=== PATIENT | male | born 1930 | race Caucasian/White ===

== ENCOUNTER 2017-12-04 02:48 | Inpatient (IN) | payer MEDICARE ==
[2017-12-04] VITALS (10 sets, daily range): BP systolic 146–182; BP diastolic 67–92; PULSE 62–85; RESP 15–24; TEMP 98.2–99.5; O2SAT 93–98
[2017-12-04] MEDS ORDERED: LACTULOSE SYRUP 20 GM/30 ML CUP PO PRN (05:00)
[2017-12-04] MEDS ORDERED: ONDANSETRON HCL 4 MG/2 ML VIAL IV PUSH PRN (05:00)
[2017-12-04] MEDS ORDERED: CHLORHEXIDINE GLUCONATE 2 % 1 PACK (2 CLOTHS) TOP PRN (05:00)
[2017-12-04] MEDS: SODIUM CHLOR 0.9% 1000 ML INJ 1,000 ML IV SCH ×2 (05:00→16:55)
[2017-12-04] MEDS ORDERED: SODIUM CHLORIDE 0.9% FLUSH 10 ML FLUSH IV FLUSH PRN (05:00)
[2017-12-04] MEDS ORDERED: BISACODYL 10 MG SUPP RECTAL PRN (05:00)
[2017-12-04] MEDS ORDERED: NURSING INFORMATION XX SCH (05:00)
[2017-12-04] MEDS ORDERED: niCARdipine INJ 25 MG in SODIUM CHLOR 0.9% 250 ML INJ 240 ML IV PRN (05:00)
[2017-12-04] MEDS ORDERED: MAGNESIUM HYDROXIDE SUSP 30 ML CUP PO PRN (05:00)
[2017-12-04] MEDS ORDERED: RESP: ALBUTEROL 2.5 MG/3 ML NEB (PRN) INH (05:00)
[2017-12-04] MEDS ORDERED: SENNOSIDES 8.6 MG TAB PO PRN (05:00)
[2017-12-04] MEDS: LABETALOL HCL 100 MG/20 ML VIAL IV PUSH PRN (05:18)
[2017-12-04] MEDS ORDERED: COMB0.2S EACH EYE (05:53)
[2017-12-04] MEDS ORDERED: FINA5TAB2 (05:54)
[2017-12-04] MEDS ORDERED: CHOL10008 (06:02)
[2017-12-04] MEDS ORDERED: ATOR10TA15 PO (06:02)
[2017-12-04] MEDS ORDERED: METO-489 PO (06:02)
[2017-12-04] MEDS ORDERED: AMLO5 PO (06:02)
[2017-12-04] MEDS ORDERED: TAMS5CAP PO (06:02)
[2017-12-04] MEDS ORDERED: CELE10TA PO (06:02)
[2017-12-04] MEDS ORDERED: NYST10007 TOPICAL (06:02)
[2017-12-04] MEDS ORDERED: LISI40TA PO (06:02)
[2017-12-04] MEDS: ACETAMINOPHEN 325 MG TAB PO PRN ×2 (08:06→18:13)
--- NOTE | 2017-12-04 08:46 | HHI.HP ---
[facility] Service Critical Care Medicine Primary Care Physician Unknown Admission Diagnosis Diagnosis: Chief Complaint: Fall, subdural hemorrhage Travel History International Travel<30 Days: No Contact w/Intl Traveler <30 Da: No Traveled to Known Affected Are: No History of Present Illness 87-year-old male who presented to [facility] on 12/03 with a history of fall 1930 minutes prior to presentation which happened when he was going to lay in his bed when he missed and fell down hitting his head. Patient reportedly on Eliquis. He underwent a head CT at [facility] which revealed left hyperdense subdural hematoma measuring 1 cm in maximal thickness with no mass-effect contiguous left frontal convexity subdural hematoma containing hyperdense hemorrhage maximal thickness 0.8 cm. 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 Patient did sustain a scalp laceration which was sutured at [facility] prior to transferring to [place]. Patient was accepted for transfer to [facility] by Dr. Roche for neurosurgery evaluation. I evaluated the patient this morning following arrival to [facility]. Patient is awake and alert and gives me details of his history. Denies any headache, visual disturbance, dizziness, nausea or vomiting. He does have minimal weakness on the left side which is from his previous stroke. Review of Systems ROS per HPI Past Family Social History Allergies: Coded Allergies: No Known Allergies (Unverified , 12/04/17) Past Medical History CVA/TIA/stroke, glaucoma, hyperlipidemia, hypertension, osteoporosis Past Surgical History Cholecystectomy, EGD Reported Medications Combigan eyedrops, Tylenol as needed, Proscar 5 mg p.o. daily, Ocuvite soft gel 1 cap p.o. twice daily, Lipitor 10 mg p.o. nightly, vitamin D3 1000 units p.o. daily, Celexa 10 mg daily, metoprolol succinate 100 mg p.o. nightly Family History Noncontributory at this time. Social History Occasional alcohol intake. No history of drug abuse. Physical Exam Vital Signs Vital Signs Date Time Temp Pulse Resp B/P (MAP) Pulse Ox O2 Delivery O2 Flow Rate FiO2 12/04/17 06:00 83 12/04/17 04:20 98.3 85 15 182/92 (122) 96 Physical Exam HEENT/Neuro: No pallor or icterus, tongue moist, YADIRA, Awake alert oriented 3 , minimal weakness left upper and lower extremity which is not new, moving all 4 extremities Neck: No JVD Chest/pulmonary: CTA bilaterally Cardiovascular: S1-S2 regular no gallop or murmur GI/abdomen: Soft, nontender, bowel sounds present Extremities: Warm bilaterally, no edema Laboratory Labs done at [facility] reviewed: White count 12.2, hemoglobin 12.9 hematocrit 39.2 platelets 207. PT 14.1 Omma INR 1.3, PTT 30.5 seconds. Sodium 139, potassium 3.8, chloride 103, bicarb 25, BUN 14, creatinine 0.82, glucose 116, calcium 8.9, total bilirubin 0.4, AST 21, ALT 22, alk phos 102, total protein 7.3, albumin 4.1 Laboratory Tests Test 12/04/17 04:30 Nasal Screen MRSA (PCR) MRSA DETECTED Imaging head CT at [facility] which revealed left hyperdense subdural hematoma measuring 1 cm in maximal thickness with no mass-effect contiguous left frontal convexity subdural hematoma containing hyperdense hemorrhage maximal thickness 0.8 cm. 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 Caprini VTE Risk Assessment Caprini VTE Risk Assessment: Mod/High Risk (score >= 2) VTE Pharm Contraindication: Hemorrhage Caprini Risk Assessment Model Point Value = 1 Point Value = 2 Point Value = 3 Point Value = 5 Age 41-60 Minor surgery BMI > 25 kg/m2 Swollen legs Varicose veins or History of unexplained or recurrent spontaneous Oral contraceptives or hormone replacement Sepsis (< 1 month) Serious lung disease, including pneumonia (< 1 month) Abnormal pulmonary function Acute myocardial infarction Congestive heart failure (< 1 month) History of inflammatory bowel disease Medical patient at bed rest Age 61-74 Arthroscopic surgery Major open surgery (> 45 min) Laparoscopic surgery (> 45 min) Malignancy Confined to bed (> 72 hours) Immobilizing plaster cast Central venous access Age >= 75 History of VTE Family history of VTE Factor V Leiden Prothrombin [id number] Lupus anticoagulant Anticardiolipin antibodies Elevated serum homocysteine Heparin-induced thrombocytopenia Other congenital or acquired thrombophilia Stroke (< 1 month) Elective arthroplasty Hip, pelvis, or leg fracture Acute spinal cord injury (< 1 month) Prophylaxis Regimen Total Risk Factor Score Risk Level Prophylaxis Regimen 0-1 Low Early ambulation 2 Moderate Order ONE of the following: *Sequential Compression Device (SCD) *Heparin 5000 units SQ BID 3-4 Higher Order ONE of the following medications: *Heparin 5000 units SQ TID *Enoxaparin/Lovenox 40 mg SQ daily (WT < 150 kg, CrCl > 30 mL/min) *Enoxaparin/Lovenox 30 mg SQ daily (WT < 150 kg, CrCl > 10-29 mL/min) *Enoxaparin/Lovenox 30 mg SQ BID (WT < 150 kg, CrCl > 30 mL/min) AND/OR *Sequential Compression Device (SCD) 5 or more Highest Order ONE of the following medications: *Heparin 5000 units SQ TID (Preferred with Epidurals) *Enoxaparin/Lovenox 40 mg SQ daily (WT < 150 kg, CrCl > 30 mL/min) *Enoxaparin/Lovenox 30 mg SQ daily (WT < 150 kg, CrCl > 10-29 mL/min) *Enoxaparin/Lovenox 30 mg SQ BID (WT < 150 kg, CrCl > 30 mL/min) AND *Sequential Compression Device (SCD) Assessment and Plan Assessment and Plan 87-year-old male with: Fall status post left subdural hematoma Scalp laceration History of CVA/TIAs Hyperlipidemia Hypertension Osteoporosis Glaucoma Plan: Neuro: Admitted to [facility]. Consult neurosurgery for further evaluation of subdural hematoma. Neuro checks. Repeat head CT to be decided per neurosurgery. Cardiovascular: Hold Eliquis. Continue metoprolol. Will use hydralazine as needed for SBP greater than 160 mmHg. Pulmonary: Supplemental O2 as needed, bronchodilators as needed. Currently protecting airway. If neurologic status worsens may require endotracheal intubation. GI/liver: P.o. diet if okay with neurosurgery. Renal/: IV hydration, follow intake output, monitor and replete electrolytes, follow BUN/creatinine. ID: No indication for antibiotics at this time. Endocrine: Watch for hyperglycemia, SSI for glycemic control if needed. Heme: Hold Eliquis. Follow CBC Prophylaxis: SCDs for DVT prophylaxis. Further recommendations per neurosurgery Jamie Conti MD December 04, 2017 08:46
[2017-12-04] MEDS: SODIUM CHLORIDE 0.9% FLUSH 10 ML FLUSH IV FLUSH SCH ×2 (09:00→21:15)
[2017-12-04] MEDS: FAMOTIDINE 20 MG/2 ML VIAL IV PUSH SCH ×2 (09:00→21:15)
[2017-12-04] MEDS: DOCUSATE SODIUM 50 MG/SENNA 8.6 MG TAB PO SCH ×2 (09:00→21:14)
--- NOTE | 2017-12-04 10:50 | PD.CONS ---
History of Present Illness Service Neurosurgery Consult Requested By [employer] Reporter Reason for Consult Acute subdural hemorrhage Primary Care Physician Unknown Diagnoses: History of Present Illness 87-year-old gentleman who was transferred from [facility] for acute subdural hemorrhage after a fall at home last evening where he slipped and struck his back of his head without loss of consciousness. He relates a mild headache but denies any other particular symptoms. He was transferred to [facility] this morning for further management. CT scan of the head reviewed shows an 8 mm left frontal convexity subdural hemorrhage as well as interhemispheric subdural hemorrhage with generalized atrophy and no midline shift. He is on Eliquis anticoagulation for stroke 2 years ago which his relates was significant and he was comatose on a ventilator for a while and has residual left hemiparesis. Last time he took his Eliquis was last evening. He denies any neck or back pain. He relates a couple weeks ago he had some numbness in his hands which has resolved at this point. Review of Systems Constitutional: DENIES: Diaphoretic episodes, Fatigue, Fever, Weight gain, Weight loss, Chills, Dizziness, Change in appetite, Night Sweats Endocrine: DENIES: Heat/cold intolerance, Polydipsia, Polyuria, Polyphagia Eyes: DENIES: Blurred vision, Diplopia, Eye inflammation, Eye pain, Vision loss , Photosensitivity, Double Vision Ears, nose, mouth, throat: DENIES: Tinnitus, Hearing loss, Vertigo, Nasal discharge, Oral lesions, Throat pain, Hoarseness, Ear Pain, Running Nose, Epistaxis, Sinus Pain, Toothache, Odynophagia Respiratory: DENIES: Apneas, Cough, Snoring, Wheezing, Hemoptysis, Sputum production, Shortness of breath Cardiovascular: DENIES: Chest pain, Palpitations, Syncope, Dyspnea on Exertion , PND, Lower Extremity Edema, Orthopnea, Claudication Gastrointestinal: DENIES: Abdominal pain, Black stools, Bloody stools, Constipation, Diarrhea, Nausea, Vomiting, Difficulty Swallowing, Anorexia Genitourinary: DENIES: Sexual dysfunction, Urinary frequency, Urinary incontinence, Urgency, Hematuria, Dysuria, Nocturia, Penile Discharge, Testicular Pain, Testicular Swelling Musculoskeletal: DENIES: Joint pain, Muscle aches, Stiffness, Joint Swelling, Back pain, Neck pain Integumentary: DENIES: Abnormal pigmentation, Nail changes, Pruritus, Rash Hematologic/lymphatic: COMPLAINS OF: Bruising, DENIES: Lymphadenopathy Immunologic/allergic: DENIES: Eczema, Urticaria Neurologic: COMPLAINS OF: Abnormal gait, Headache, Localized weakness, DENIES: Paresthesias, Seizures, Speech Problems, Tremor, Poor Balance Psychiatric: DENIES: Anxiety, Confusion, Mood changes, Depression, Hallucinations, Agitation, Suicidal Ideation, Homicidal Ideation, Delusions Except as stated in HPI: all other systems reviewed are Neg Past Family Social History Allergies: Coded Allergies: No Known Allergies (Unverified , 12/04/17) Past Medical History Stroke with residual left hemiparesis 2 years ago, glaucoma, hyperlipidemia, hypertension, osteoporosis Past Surgical History Cholecystectomy, EGD Reported Medications Atorvastatin (Atorvastatin Calcium) 10 Mg Tab 10 Mg PO HS Nystop Topical (Nystatin Topical) 100,000 Unit/Gm Powd 1 Applic TOPICAL Q12HR Lisinopril 40 Mg Tab 40 Mg PO DAILY Flomax (Tamsulosin HCl) 0.4 Mg Cap 0.4 Mg PO HS Norvasc (Amlodipine Besylate) 5 Mg Tab 5 Mg PO DAILY Metoprolol Succinate/HCTZ 100-12.5 ER 100 Mg-12.5 Mg Tab 1 Tab PO DAILY Celexa (Citalopram Hydrobromide) 10 Mg Tab 10 Mg PO DAILY Vitamin D3 (Cholecalciferol) 1,000 Unit Cap 1,000 Units DAILY Finasteride 5 Mg Tab 5 Mg DAILY Do not crush. Combigan Opth Drops (Brimonidine-Timolol Opth Drops) 0.2-0.5% Soln 1 Drop EACH EYE Q12HR Active Ordered Medications Current Medications Medications (Trade) Dose Ordered Sig/Sher Route PRN Reason Start Time Stop Time Status Last Admin Dose Admin Labetalol HCl (Trandate Inj) 10 mg Q4H PRN IV PUSH SBP >160 12/04/17 05:00 12/04/17 05:18 Hydralazine HCl (Apresoline Inj) 10 mg Q4H PRN IV PUSH SBP >160 12/04/17 05:00 Sodium Chloride 1,000 ml @ 84 mls/hr [id number] IV 12/04/17 05:00 12/04/17 05:00 Sodium Chloride (NS Flush) 2 ml UNSCH PRN IV FLUSH FLUSH AFTER USING IV ACCESS 12/04/17 05:00 Sodium Chloride (NS Flush) 2 ml BID IV FLUSH 12/04/17 09:00 12/04/17 09:00 Acetaminophen (Tylenol) 650 mg Q6H PRN PO PAIN 1-3 OR TEMP >100.4 12/04/17 05:00 12/04/17 08:06 Famotidine (Pepcid Inj) 20 mg Q12HR IV PUSH 12/04/17 09:00 Ondansetron HCl (Zofran Inj) 4 mg Q6H PRN IV PUSH NAUSEA OR VOMITING 12/04/17 05:00 Albuterol Sulfate (Albuterol Neb) 2.5 mg Q2HR NEB PRN INH SOB/WHEEZING 12/04/17 05:00 Miscellaneous Information ([facility] Nursing Information) 1 [id number] XX 12/04/17 05:00 12/04/17 05:00 Chlorhexidine Gluconate (Chlorhexidine 2% Cloth) 3 pack Taper DAILY@04 TOP 12/05/17 04:00 12/01/18 03:59 Chlorhexidine Gluconate (Chlorhexidine 2% Cloth) 3 pack UNSCH PRN TOP HYGIENIC CARE 12/04/17 05:00 Senna/Docusate Sodium (Yanet-Colace) 1 tab BID PO 12/04/17 09:00 Magnesium Hydroxide (Milk Of Magnesia Liq) 30 ml Q12H PRN PO Mild constipation 12/04/17 05:00 Sennosides (Senokot) 17.2 mg Q12H PRN PO Moderate constipation 12/04/17 05:00 Bisacodyl (Dulcolax Supp) 10 mg DAILY PRN RECTAL SEVERE CONSITIPATION 12/04/17 05:00 Lactulose (Lactulose Liq) 30 ml DAILY PRN PO SEVERE CONSITIPATION 12/04/17 05:00 Nicardipine HCl 25 mg/Sodium Chloride 250 ml @ 50 mls/hr TITRATE PRN IV Blood Pressure Management 12/04/17 05:15 Influenza Virus Vaccine (Flu (Quadrivalent) Vaccine Inj) 0.5 ml ONCE ONCE IM 12/05/17 09:00 12/05/17 09:01 Family History Unremarkable Social History He is and and daughter are here with him. Denies alcohol use and is a former smoker Physical Exam Vital Signs Vital Signs Date Time Temp Pulse Resp B/P (MAP) Pulse Ox O2 Delivery O2 Flow Rate FiO2 12/04/17 10:00 66 12/04/17 08:00 72 12/04/17 08:00 98.8 72 24 171/77 (108) 98 12/04/17 08:00 72 12/04/17 07:00 Room Air 98 12/04/17 06:00 83 12/04/17 04:20 98.3 85 15 182/92 (122) 96 Physical Exam GENERAL: This is a well-nourished, well-developed patient, in no apparent distress. SKIN: No rashes, ecchymoses or lesions. Cool and dry. HEAD: Occipital scalp laceration which has been stapled. EYES: Pupils equal round and reactive. Extraocular motions intact. No scleral icterus. No injection or drainage. ENT: Nose without bleeding, purulent drainage or septal hematoma. Throat without erythema, tonsillar hypertrophy or exudate. Uvula midline. Airway patent. NECK: Trachea midline. No JVD or lymphadenopathy. Supple, nontender, no meningeal signs. CARDIOVASCULAR: Regular rate and rhythm without murmurs, gallops, or rubs. RESPIRATORY: Clear to auscultation. Breath sounds equal bilaterally. No wheezes , rales, or rhonchi. GASTROINTESTINAL: Abdomen soft, non-tender, nondistended. No hepato-splenomegaly , or palpable masses. No guarding. MUSCULOSKELETAL: Extremities without clubbing, cyanosis, or edema. No joint tenderness, effusion, or edema noted. No calf tenderness. Negative Homans sign bilaterally. NEUROLOGICAL: Awake and alert. Cranial nerves II through XII intact. Normal speech. His left hemiparesis 4-/5 with positive Babinski on the left side. Appreciates light touch sensation bilaterally. Laboratory Labs done at [facility] reviewed: White count 12.2, hemoglobin 12.9 hematocrit 39.2 platelets 207. PT 14.1 Omma INR 1.3, PTT 30.5 seconds. Sodium 139, potassium 3.8, chloride 103, bicarb 25, BUN 14, creatinine 0.82, glucose 116, calcium 8.9, total bilirubin 0.4, AST 21, ALT 22, alk phos 102, total protein 7.3, albumin 4.1 Laboratory Tests Test 12/04/17 04:30 Nasal Screen MRSA (PCR) MRSA DETECTED Assessment and Plan Assessment and Plan 87-year-old gentleman with a moderate left frontal convexity and interhemispheric subdural hemorrhage with generalized atrophy after a fall. He is on chronic Eliquis therapy for previous history of stroke 2 years ago and residual left hemiparesis. Recommend close observation the surgical intensive care unit. Keep head of bed elevated 30. Mechanical DVT prophylaxis and gastrointestinal stress ulcer prophylaxis. Follow-up CT scan of the head tomorrow morning to rule out any progression of subdural hemorrhage. Unfortunately given the Eliquis therapy he would not be a candidate for any surgical intervention in the next 48-72 hours until this clears out of his system should this subdural hemorrhage enlarge or his condition deteriorate. He will need rehabilitation. Discussed and updated family at the bedside. Discussed with bleach maker Dr. Conti. Babatunde Mcintyre MD December 04, 2017 10:50
[2017-12-04] MEDS: levETIRAcetam 500 MG TAB PO SCH ×2 (12:00→21:14)
--- NOTE | 2017-12-04 13:59 | EKG ---
Date Performed: 12/04/2017 Time Performed: 05:34:50 PTAGE: 87 years EKG: Sinus rhythm with borderline 1st degree A-V block Left axis deviation Low QRS voltages in precordial leads Border line ECG NO PREVIOUS TRACING Voltage criteria for left ventricular hypertrophy in aVL. DOCTOR: Faisal Tovar Interpretating Date/Time 12/04/2017 13:58:02
[2017-12-04] MEDS ORDERED: NON-FORMULARY DRUG (Brimonidine-Timolol Opth Drops (Combigan Opth Drops) 1 DROP) EACH EYE SCH (21:00)
[2017-12-04] MEDS: BRIMONIDINE TARTRATE 0.2% OPHT SOLN 5 ML BTL EACH EYE SCH (21:00)
[2017-12-04] MEDS: TIMOLOL MALEATE 0.5% OPHT SOLN 5 ML BTL EACH EYE SCH (21:00)
[2017-12-04] MEDS: NYSTATIN 100,000 U/GM PWD 15 GM BTL TOPICAL SCH (21:00)
[2017-12-04] MEDS: TAMSULOSIN HCL 0.4 MG CAP PO SCH (21:14)
[2017-12-04] MEDS: ATORVASTATIN 10 MG TAB PO SCH (21:14)
[2017-12-05] VITALS (13 sets, daily range): BP systolic 114–175; BP diastolic 55–74; PULSE 70–84; RESP 19–21; TEMP 99–102; O2SAT 90–97
[2017-12-05] MEDS: CHLORHEXIDINE GLUCONATE 2 % 1 PACK (2 CLOTHS) TOP SCH (04:00)
[2017-12-05] MEDS: SODIUM CHLOR 0.9% 1000 ML INJ 1,000 ML IV SCH ×2 (05:19→16:45)
[2017-12-05 06:08] LABS: AUTOMATED NEUTROPHIL # 5.5 TH/MM3 (1.8-7.7); BASOPHIL % 0.3 % (0.0-2.0); EOSINOPHIL # 0.4 TH/MM3 (0-0.4); EOSINOPHIL % 5.3 % (0.0-4.0); HEMOGLOBIN 10.8 GM/DL (13.0-17.0); LYMPH % 19.4 % (9.0-44.0); LYMPHOCYTE # 1.5 TH/MM3 (1.0-4.8); MEAN CELL VOLUME 93.2 FL (80.0-100.0); MEAN CORPUSCULAR HEMOGLOBIN 32.5 PG (27.0-34.0); MEAN CORPUSCULAR HGB CONC 34.9 % (32.0-36.0); MEAN PLATELET VOLUME 7.5 FL (7.0-11.0); MONO % 4.5 % (0.0-8.0); MONOCYTE # 0.3 TH/MM3 (0-0.9); NEUT % 70.5 % (16.0-70.0); PLATELET COUNT 178 TH/MM3 (150-450); RED BLOOD COUNT 3.33 MIL/MM3 (4.50-5.90); RED CELL DISTRIBUTION WIDTH 13.9 % (11.6-17.2); WHITE BLOOD COUNT 7.8 TH/MM3 (4.0-11.0)
[2017-12-05] MEDS: LABETALOL HCL 100 MG/20 ML VIAL IV PUSH PRN ×2 (06:20→09:53)
[2017-12-05 06:30] LABS: BICARBONATE 24.5 MEQ/L (21.0-32.0); CALCIUM 7.9 MG/DL (8.5-10.1); CREATININE 0.99 MG/DL (0.60-1.30)
[2017-12-05] MEDS: hydrALAZINE HCL 20 MG/ML VIAL IV PUSH PRN (06:36)
[2017-12-05] MEDS: TIMOLOL MALEATE 0.5% OPHT SOLN 5 ML BTL EACH EYE SCH ×2 (09:00→20:36)
[2017-12-05] MEDS: SODIUM CHLORIDE 0.9% FLUSH 10 ML FLUSH IV FLUSH SCH ×2 (09:00→20:36)
[2017-12-05] MEDS: BRIMONIDINE TARTRATE 0.2% OPHT SOLN 5 ML BTL EACH EYE SCH ×2 (09:00→20:36)
[2017-12-05] MEDS ORDERED: INFLUENZA VIRUS VACCINE (QUADRIVALENT) 0.5 ML SYR IM ONE (09:00)
[2017-12-05] MEDS: NYSTATIN 100,000 U/GM PWD 15 GM BTL TOPICAL SCH ×2 (09:00→20:35)
[2017-12-05] MEDS: FINASTERIDE 5 MG TAB PO SCH (09:16)
[2017-12-05] MEDS: CHOLECALCIFEROL (VIT D3) 1000 UNIT TAB PO SCH (09:16)
[2017-12-05] MEDS: METOPROLOL SUCCINATE 50 MG EXTENDED RELEASE TAB PO SCH (09:16)
[2017-12-05] MEDS: amLODIPine BESYLATE 5 MG TAB PO SCH (09:16)
[2017-12-05] MEDS: LISINOPRIL 20 MG TAB PO SCH (09:16)
[2017-12-05] MEDS: DOCUSATE SODIUM 50 MG/SENNA 8.6 MG TAB PO SCH ×3 (09:16→21:00)
[2017-12-05] MEDS: levETIRAcetam 500 MG TAB PO SCH ×3 (09:16→21:00)
[2017-12-05] MEDS: CITALOPRAM HYDROBROMIDE 20 MG TAB PO SCH (09:16)
[2017-12-05] MEDS: HYDROCHLOROTHIAZIDE 12.5 MG CAP PO SCH (09:16)
[2017-12-05] MEDS: FAMOTIDINE 20 MG/2 ML VIAL IV PUSH SCH ×2 (09:17→20:36)
--- NOTE | 2017-12-05 09:51 | RADRPT ---
EXAM DATE/TIME: 12/05/2017 09:35 [place] COMPARISON: No previous studies available for comparison. INDICATIONS : Fall, Subdural hematoma RADIATION DOSE: 56.35 CTDIvol (mGy) MEDICAL HISTORY : Cardiovascular disease. SURGICAL HISTORY : None. ENCOUNTER: Initial ACUITY: 1 day PAIN SCALE: 0/10 LOCATION: cranial TECHNIQUE: Multiple contiguous axial images were obtained of the head. Using automated exposure control and adj ustment of the mA and/or kV according to patient size, radiation dose was kept as low as reasonably a chievable to obtain optimal diagnostic quality images. DICOM format image data is available electro nically for review and comparison. FINDINGS: There is parafalcine and left frontal subdural hematoma with maximum thickness of just over a centime ter. No significant brain shift aerated minimal blood layering along the left leaf of the tentorium. Patchy moderate diminished attenuation deep white matter structures which appears chronic. No evidenc e of intraventricular hemorrhage or significant parenchymal hematoma during there is no evidence of i ntracranial mass. Nothing to suggest acute infarction. There is mild occasional mucosal sinus disease. No evidence of skull fracture. CONCLUSION: Parafalcine and left frontal subdural hematoma. Angelo Dailey MD on December 05, 2017 at 9:46 Board Certified Radiologist. This report was verified electronically.
[2017-12-05] MEDS: niCARdipine 25 MG/NS 250 ML Vial2Bag or IV room IV PRN ×6 (10:07→20:35)
--- NOTE | 2017-12-05 10:20 | HHI.NSPN ---
(Swapnil Ivy) History Chief Complaint: SDH (Swapnil Ivy) Interval History 87-year-old gentleman who was transferred from [facility] for acute subdural hemorrhage after a fall at home last evening where he slipped and struck his back of his head without loss of consciousness. He relates a mild headache but denies any other particular symptoms. He was transferred to [facility] this morning for further management. CT scan of the head reviewed shows an 8 mm left frontal convexity subdural hemorrhage as well as interhemispheric subdural hemorrhage with generalized atrophy and no midline shift. He is on Eliquis anticoagulation for stroke 2 years ago which his relates was significant and he was comatose on a ventilator for a while and has residual left hemiparesis. Last time he took his Eliquis was last evening. He denies any neck or back pain. He relates a couple weeks ago he had some numbness in his hands which has resolved at this point. 12/05/17: Pt awake and alert. Complains of headache all over but not severe. He has a history of left hemiparesis from previous stroke. No n/v. No chest pain or sob. (Swapnil Ivy) Review of Systems General: Negative for: fever, chills, insomnia Respiratory: Negative for: shortness of breath, cough, sputum Cardiovascular: Negative for: chest pain Gastrointestinal: Negative for: nausea, vomitting, diarrhea, constipation ( Swapnil Ivy) Exam Results Vital Signs Date Time Temp Pulse Resp B/P (MAP) Pulse Ox O2 Delivery O2 Flow Rate FiO2 12/05/17 10:07 71 181/79 12/05/17 08:00 99.9 21 97 12/05/17 07:00 Room Air 99 Intake and Output 12/05/17 12/05/17 12/06/17 08:00 16:00 00:00 Intake Total 1120 ml Output Total 450 ml Balance 670 ml (Swapnil Ivy) Physical Examination General: Pt awake and alert. Resting in bed in ICU. Eyes: Pupils equal. Sclera anicteric. Resp: CTA bilaterally. Heart: NSR no murmurs Abd: Soft positive bs Skin: No cyanosis or erythema. Muscle: Left hemiparesis from his previous stroke. Moves right side well. Neuro: Pt awake and alert. Pupils equal. Speech clear and appropriate. Follows commands well. (Swapnil Ivy) Lab, Micro, Other Results Last Impressions Head CT 12/05/17 0800 Signed Impressions: Service Date/Time: Tuesday, December 05, 2017 09:35 - CONCLUSION: Parafalcine and left frontal subdural hematoma. Angelo Dailey MD Laboratory Tests Test 12/05/17 05:31 White Blood Count 7.8 TH/MM3 Red Blood Count 3.33 MIL/MM3 Hemoglobin 10.8 GM/DL Hematocrit 31.0 % Mean Corpuscular Volume 93.2 FL Mean Corpuscular Hemoglobin 32.5 PG Mean Corpuscular Hemoglobin Concent 34.9 % Red Cell Distribution Width 13.9 % Platelet Count 178 TH/MM3 Mean Platelet Volume 7.5 FL Neutrophils (%) (Auto) 70.5 % Lymphocytes (%) (Auto) 19.4 % Monocytes (%) (Auto) 4.5 % Eosinophils (%) (Auto) 5.3 % Basophils (%) (Auto) 0.3 % Neutrophils # (Auto) 5.5 TH/MM3 Lymphocytes # (Auto) 1.5 TH/MM3 Monocytes # (Auto) 0.3 TH/MM3 Eosinophils # (Auto) 0.4 TH/MM3 Basophils # (Auto) 0.0 TH/MM3 CBC Comment DIFF FINAL Differential Comment Blood Urea Nitrogen 11 MG/DL Creatinine 0.99 MG/DL Random Glucose 95 MG/DL Calcium Level 7.9 MG/DL Sodium Level 142 MEQ/L Potassium Level 3.6 MEQ/L Chloride Level 109 MEQ/L Carbon Dioxide Level 24.5 MEQ/L Anion Gap 9 MEQ/L Estimat Glomerular Filtration Rate 72 ML/MIN (Swapnil Ivy) Medical Decision Making Impression and Plan A: 87-year-old gentleman with a moderate left frontal convexity and interhemispheric subdural hemorrhage with generalized atrophy after a fall. He is on chronic Eliquis therapy for previous history of stroke 2 years ago and residual left hemiparesis. Pt at high risk for increased hemorrhage and clinical deterioration. Follow up CT head just done will be compared to previous. P: Continue with close neuro checks. Anticoagulation obviously on hold. Continue with DVT prophylaxis Continue with GI prophylaxis. (Swapnil Ivy) Attending Statement The exam, history, and the medical decision-making described in the above note were completed with the assistance of the mid-level provider. I reviewed and agree with the findings presented. I attest that I had a [id number] encounter with the patient on the same day, and personally performed and documented my assessment and findings in the medical record. Follow-up CT scan of the head with slight increase in the left convexity subdural hemorrhage. He was more alert and verbose and interactive this morning and this afternoon was noted to have possible tremors in the right side and subsequently more aphasic and lethargic. He does follow simple commands and will state his name and location. He is on Keppra 500 mg twice daily and will be bolused an additional 1000 mg and also obtain EEG. Possible intubation if his level of alertness and airway protection declines. We will also obtain a follow-up CT scan of the head tomorrow morning to rule out any progression of this is a subdural hemorrhage. Discussed with the and painting instructor Dr. Dunn. (Babatunde Mcintyre MD) Swapnil Ivy December 05, 2017 10:20 Babatunde Mcintyre MD December 05, 2017 16:21
--- NOTE | 2017-12-05 13:01 | HHI.CCPN ---
Subjective Remarks/Hospital Course 87-year-old male who presented to [facility] on 12/03 with a history of fall 1930 minutes prior to presentation which happened when he was going to lay in his bed when he missed and fell down hitting his head. Patient reportedly on Eliquis. He underwent a head CT at [facility] which revealed left hyperdense subdural hematoma measuring 1 cm in maximal thickness with no mass-effect contiguous left frontal convexity subdural hematoma containing hyperdense hemorrhage maximal thickness 0.8 cm. 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 Patient did sustain a scalp laceration which was sutured at [facility] prior to transferring to [place]. Patient was accepted for transfer to [facility] by Dr. Roche for neurosurgery evaluation. I evaluated the patient this morning following arrival to [facility]. Patient is awake and alert and gives me details of his history. Denies any headache, visual disturbance, dizziness, nausea or vomiting. He does have minimal weakness on the left side which is from his previous stroke. 12/05: Patient remains alert and conversant. Speech is clear. All anticoagulation has been stopped. Repeat CAT scan of the head shows some attenuation of the hematoma. No mass-effect. Memory is excellent. Update 1400 hrs: Patient quite lethargic. Responds to loud voice. Probably post- ictal, watch closely. Objective Vital Signs Date Time Temp Pulse Resp B/P (MAP) Pulse Ox O2 Delivery O2 Flow Rate FiO2 12/05/17 12:00 102.0 78 19 143/65 (91) 97 12/05/17 11:53 Nasal Cannula 2.00 12/05/17 07:00 99 Intake and Output 12/05/17 12/05/17 12/06/17 08:00 16:00 00:00 Intake Total 1120 ml Output Total 450 ml Balance 670 ml Result Diagram: 12/05/17 0531 12/05/[address] [facility] which revealed left hyperdense subdural hematoma measuring 1 cm in maximal thickness with no mass-effect contiguous left frontal convexity subdural hematoma containing hyperdense hemorrhage maximal thickness 0.8 cm. 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 Objective Remarks Neuro: Awake alert oriented 3, persistent weakness left upper and lower extremity which is not new, moving all 4 extremities. Speech clear, speaks in full sentences. Neck: Supple, airway widely patent Chest/pulmonary: Clear, no adventitious sounds. Comfortable respiratory pattern. Cardiovascular: S1-S2 regular no gallop or murmur. No JVD. GI/abdomen: Soft, nontender, bowel sounds present. No guarding. Extremities: Warm bilaterally, no edema. Well-perfused. A/P Assessment and Plan 87-year-old male with: Fall status post left subdural hematoma Scalp laceration History of CVA/TIAs Hyperlipidemia Hypertension Osteoporosis Glaucoma Plan: Neuro: Admitted to [facility]. Neuro checks. Repeat head CT without extension of hematoma. Cardiovascular: Hold Eliquis. Continue metoprolol. Will use hydralazine as needed for SBP greater than 160 mmHg. Pulmonary: Supplemental O2 as needed, bronchodilators as needed. Currently protecting airway. GI/liver: P.o. diet. Renal/: IV hydration, follow intake output, monitor and replete electrolytes, follow BUN/creatinine. ID: No indication for antibiotics at this time. Endocrine: Watch for hyperglycemia, SSI for glycemic control if needed. Heme: Hold Eliquis. Follow CBC Prophylaxis: SCDs for DVT prophylaxis. Overall impression: Elderly gentleman sustained closed head injury with traumatic subdural hematoma right side. Patient has been on Eliquis following a severe CVA 2 years ago. He protects his airway well and there has been no neurologic deterioration. Back in [place] he has arrangements made for a woman to visit his house 5 days a week. She assists with his daily activities. We need to discuss his post acute care with case management at [facility] prior to discharge. Lengthy talk with his daughter and Dr. Mcintyre at the bedside. Plans discussed. Daughter has been encouraged to discuss half-way goals with her brother. She is DOROTEO for health. Tony Flood MD December 05, 2017 13:01
[2017-12-05] MEDS ORDERED: levETIRAcetam INJ 100 ML IV ONE (14:00)
[2017-12-05] MEDS: TAMSULOSIN HCL 0.4 MG CAP PO SCH ×2 (20:37→21:00)
[2017-12-05] MEDS: ATORVASTATIN 10 MG TAB PO SCH ×2 (20:37→21:00)
[2017-12-05] MEDS: ACETAMINOPHEN 325 MG TAB PO PRN (20:37)
[2017-12-06] VITALS (10 sets, daily range): BP systolic 126–168; BP diastolic 58–78; PULSE 65–89; RESP 16–22; TEMP 99.4–101.2; O2SAT 95–98
[2017-12-06] MEDS: niCARdipine 25 MG/NS 250 ML Vial2Bag or IV room IV PRN ×4 (03:17→07:55)
[2017-12-06] MEDS: CHLORHEXIDINE GLUCONATE 2 % 1 PACK (2 CLOTHS) TOP SCH (04:00)
[2017-12-06] MEDS: SODIUM CHLOR 0.9% 1000 ML INJ 1,000 ML IV SCH ×2 (04:40→16:35)
[2017-12-06 05:16] LABS: BICARBONATE 25.2 MEQ/L (21.0-32.0); CALCIUM 7.7 MG/DL (8.5-10.1); CREATININE 0.74 MG/DL (0.60-1.30)
--- NOTE | 2017-12-06 05:53 | RADRPT ---
EXAM DATE/TIME: 12/06/2017 05:00 [place] COMPARISON: CT BRAIN W/O CONTRAST, December 05, 2017, 9:35. INDICATIONS : Fall, Subdural hematoma RADIATION DOSE: 39.13 CTDIvol (mGy) ; Patient motion MEDICAL HISTORY : Cardiovascular disease. SURGICAL HISTORY : None. ENCOUNTER: Initial ACUITY: 1 day PAIN SCALE: 5/10 LOCATION: cranial TECHNIQUE: Multiple contiguous axial images were obtained of the head. Using automated exposure control and adj ustment of the mA and/or kV according to patient size, radiation dose was kept as low as reasonably a chievable to obtain optimal diagnostic quality images. DICOM format image data is available electro nically for review and comparison. FINDINGS: CEREBRUM: The parafalcine subdural hematoma which slightly extends along the left side of the tentorium and in the left frontal lobe are unchanged. Small amounts of subarachnoid hemorrhage along the left parietal and left temporal extra-axial regions are also unchanged. There is diffuse atrophy. Number left side lacunar infarcts. POSTERIOR FOSSA: The cerebellum and brainstem are intact. The 4th ventricle is midline. The cerebellopontine angle i s unremarkable. EXTRACRANIAL: The visualized portion of the orbits is intact. SKULL: The calvaria is intact. No evidence of skull fracture. CONCLUSION: Stable prominent parafalcine subdural hematoma extending into both the left frontal lobe and the left side of the tentorium unchanged from the previous study. Small amounts of extra-axial hemorrhage derrek ng the parietal lobe and left temporal lobes are also unchanged. Jensen Gaytan MD on December 06, 2017 at 5:50 Board Certified Radiologist. This report was verified electronically.
--- NOTE | 2017-12-06 07:51 | HHI.PR ---
Subjective Remarks F/U TBI. Consulted by CCM fr med mgt and transfer of care. Patient is lethargic. Answers no to all my questions. He is not following commands. Seen with his daughter who states patient at baseline is awake and ambulatory with minimal left-sided weakness from previous stroke. Discussed with nurse, patient has been off nicardipine Objective Vitals Vital Signs Date Time Temp Pulse Resp B/P (MAP) Pulse Ox O2 Delivery O2 Flow Rate FiO2 12/06/17 06:00 88 12/06/17 04:00 99.8 73 20 129/62 (84) 97 12/06/17 04:00 88 12/06/17 03:17 73 132/60 12/06/17 02:00 89 12/06/17 01:34 96 Nasal Cannula 4.00 12/06/17 00:00 72 12/06/17 00:00 99.8 65 20 126/58 (80) 97 12/05/17 22:00 72 12/05/17 20:35 76 141/62 12/05/17 20:00 76 12/05/17 20:00 99.0 76 21 136/64 (88) 97 12/05/17 19:00 Room Air 98 12/05/17 18:00 78 12/05/17 16:00 78 12/05/17 16:00 99.3 79 19 119/57 (77) 97 12/05/17 16:00 79 12/05/17 15:50 77 113/59 12/05/17 15:50 77 12/05/17 14:00 77 12/05/17 12:00 100.2 78 19 143/65 (91) 97 12/05/17 12:00 78 12/05/17 12:00 78 12/05/17 11:53 95 Nasal Cannula 2.00 12/05/17 10:07 71 181/79 12/05/17 10:00 76 12/05/17 08:00 99.9 77 21 175/74 (107) 97 12/05/17 08:00 77 12/05/17 08:00 77 I/O 12/05/17 12/05/17 12/05/17 12/06/17 12/06/17 12/06/17 07:00 15:00 23:00 07:00 15:00 23:00 Intake Total 1120 ml 1340 ml Output Total 450 ml Balance 670 ml 1340 ml Intake Oral 120 ml 100 ml IV Total 1000 ml 1240 ml Output Urine Total 450 ml # Voids 5 4 # Bowel Movements 0 0 1 Result Diagram: 12/05/17 0531 12/06/17 0359 Imaging Last Impressions Head CT 12/06/17 0800 Signed Impressions: Service Date/Time: Wednesday, December 06, 2017 05:00 - CONCLUSION: Stable prominent parafalcine subdural hematoma extending into both the left frontal lobe and the left side of the tentorium unchanged from the previous study. Small amounts of extra-axial hemorrhage along the parietal lobe and left temporal lobes are also unchanged. Jensen Gaytan MD Objective Remarks Neuro: Lethargic easily arousable not following commands. Neck: Supple, airway widely patent Chest/pulmonary: Clear, equal in expansion Cardiovascular: S1-S2 regular no gallop or murmur. No JVD. GI/abdomen: Soft, nontender, bowel sounds present. No guarding. Extremities: Warm bilaterally, no edema. Well-perfused. Procedures none A/P Problem List: (1) TBI (traumatic brain injury) ICD Code: S06.9X9A - Unspecified intracranial injury with loss of consciousness of unspecified duration, initial encounter Assessment and Plan 87-year-old male with: Fall status post left subdural hematoma Scalp laceration s/p repair History of CVA/TIAs Hyperlipidemia Hypertension Osteoporosis Glaucoma Plan: Neuro: Admitted to [facility]. Neuro checks. Repeat head CT without extension of hematoma. Ct keppra sz precautions, neuro checks. Fall precautions. Neurology recommended MRI of the brain and repeat EEG. Also check for metabolic or infectious causes of encephalopathy. UA has been ordered. Cardiovascular: Hold Eliquis. Continue metoprolol if tolerating p.o. Will use hydralazine as needed for SBP greater than 160 mmHg. Start clonidine patch Pulmonary: Supplemental O2 as needed, bronchodilators as needed. Currently protecting airway. GI/liver: P.o. diet pending swallowing eval. Renal/: IV hydration, follow intake output, monitor and replete electrolytes, follow BUN/creatinine. ID: No indication for antibiotics at this time. Chest x-ray is abnormal if patient develops fever will start empiric treatment for hospital-acquired pneumonia after obtaining appropriate cultures Endocrine: Watch for hyperglycemia, SSI for glycemic control if needed. Heme: Hold Eliquis. Follow CBC FEN. Continue IV hydration pending swallow eval. May need tube feeding however daughter who is the power of sports attorney states patient does not want artificial nutrition Prophylaxis: SCDs for DVT prophylaxis. PT recommends rehab Daughter has been encouraged to discuss longwall foreman goals with her brother. She is POA for health. Discharge Planning Patient to be kept in ICU high likelihood of deterioration of his neurological status Gera Fuchs MD December 06, 2017 07:51
[2017-12-06] MEDS ORDERED: POTASSIUM CHLORIDE 20 MEQ CONTROLLED RELEASE TAB PO ONE (08:00)
--- NOTE | 2017-12-06 08:37 | MG ---
cc: Kisha Barahona MD ELECTROENCEPHALOGRAM NUMBER: [id number]. REFERRING PHYSICIAN: Dr. Mcintyre. CLINICAL HISTORY: In room 1312, awake and restless with photic only. Head is wrapped to secure wires. Constantly moaning during study sitting up. CT shows parafalcine and left frontal subdural hematoma status post fall. MEDICATIONS: Keppra. DESCRIPTION OF RECORD: There is a very disorganized background with a lot of artifact. It is noted that he is awake. There may be some background slowing between theta and delta frequencies seen. Moaning and sitting up in the bed confirms a lot of artifact, but no overt epileptic findings. Photic stimulation, no significant driving response. IMPRESSION: Abnormal electroencephalogram due to moderate slowing likely related to encephalopathic process of various etiologies such as a subdural hematoma and/or medicine effect, but no evidence of epileptiform features in this one recording. Clinical correlation. Kisha Barahona MD DF/DL , 08:27 AM , 08:36 AM
[2017-12-06] MEDS: CHOLECALCIFEROL (VIT D3) 1000 UNIT TAB PO SCH (09:00)
[2017-12-06] MEDS: HYDROCHLOROTHIAZIDE 12.5 MG CAP PO SCH (09:00)
[2017-12-06] MEDS: METOPROLOL SUCCINATE 50 MG EXTENDED RELEASE TAB PO SCH (09:00)
[2017-12-06] MEDS: NYSTATIN 100,000 U/GM PWD 15 GM BTL TOPICAL SCH ×2 (09:00→20:57)
[2017-12-06] MEDS: amLODIPine BESYLATE 5 MG TAB PO SCH (09:00)
[2017-12-06] MEDS: TIMOLOL MALEATE 0.5% OPHT SOLN 5 ML BTL EACH EYE SCH ×2 (09:00→20:55)
[2017-12-06] MEDS: BRIMONIDINE TARTRATE 0.2% OPHT SOLN 5 ML BTL EACH EYE SCH ×2 (09:00→20:54)
[2017-12-06] MEDS: CITALOPRAM HYDROBROMIDE 20 MG TAB PO SCH (09:00)
[2017-12-06] MEDS: DOCUSATE SODIUM 50 MG/SENNA 8.6 MG TAB PO SCH ×2 (09:00→20:57)
[2017-12-06] MEDS: FINASTERIDE 5 MG TAB PO SCH (09:00)
[2017-12-06] MEDS: LISINOPRIL 20 MG TAB PO SCH (09:17)
[2017-12-06] MEDS: levETIRAcetam 500 MG/NS 100 ML IV SCH ×4 (09:22→20:54)
[2017-12-06] MEDS: MUPIROCIN 2% OINT 1 APPLIC/GM SYR EACH NARE SCH ×2 (09:22→20:55)
[2017-12-06] MEDS: FAMOTIDINE 20 MG/2 ML VIAL IV PUSH SCH ×2 (09:22→20:56)
[2017-12-06] MEDS: SODIUM CHLORIDE 0.9% FLUSH 10 ML FLUSH IV FLUSH SCH ×2 (09:23→20:55)
--- NOTE | 2017-12-06 10:13 | HHI.NSPN ---
(Swapnil Ivy) History Chief Complaint: SDH (Swapnil Ivy) Interval History 87-year-old gentleman who was transferred from [facility] for acute subdural hemorrhage after a fall at home last evening where he slipped and struck his back of his head without loss of consciousness. He relates a mild headache but denies any other particular symptoms. He was transferred to [facility] this morning for further management. CT scan of the head reviewed shows an 8 mm left frontal convexity subdural hemorrhage as well as interhemispheric subdural hemorrhage with generalized atrophy and no midline shift. He is on Eliquis anticoagulation for stroke 2 years ago which his relates was significant and he was comatose on a ventilator for a while and has residual left hemiparesis. Last time he took his Eliquis was last evening. He denies any neck or back pain. He relates a couple weeks ago he had some numbness in his hands which has resolved at this point. 12/05/17: Pt awake and alert. Complains of headache all over but not severe. He has a history of left hemiparesis from previous stroke. No n/v. No chest pain or sob. 12/06/17: Pt has eyes open but more lethargic than yesterday morning He has global aphasia. He says yep to everything. He is not following commands. (Swapnil Ivy) System Review Comments Not able to obtain given significant aphasia. (Swapnil Ivy) Exam Results Vital Signs Date Time Temp Pulse Resp B/P (MAP) Pulse Ox O2 Delivery O2 Flow Rate FiO2 12/06/17 08:00 99.4 82 22 133/58 (83) 95 12/06/17 08:00 Nasal Cannula 2.00 12/05/17 19:00 98 (Swapnil Ivy) Physical Examination General: Pt awake but not as alert as yesterday morning. Resting in bed in ICU. Eyes: Pupils equal. Sclera anicteric. Resp: CTA bilaterally. Heart: NSR no murmurs Abd: Soft positive bs Skin: No cyanosis or erythema. Muscle: Left hemiparesis from his previous stroke. Moves right side less than yesterday. He is not following commands for muscle testing but observed spontaneous movement in all 4 extremities. Neuro: Pt awake but not as alert as yesterday morning. Pupils equal 3mm bilaterally. Speech aphasia receptive and expressive. Says yep to everything. Not following commands. (Swapnil Ivy) Lab, Micro, Other Results Last Impressions Head CT 12/06/17 0800 Signed Impressions: Service Date/Time: Wednesday, December 06, 2017 05:00 - CONCLUSION: Stable prominent parafalcine subdural hematoma extending into both the left frontal lobe and the left side of the tentorium unchanged from the previous study. Small amounts of extra-axial hemorrhage along the parietal lobe and left temporal lobes are also unchanged. Jensen Gaytan MD Laboratory Tests Test 12/06/17 03:59 Blood Urea Nitrogen 13 MG/DL Creatinine 0.74 MG/DL Random Glucose 136 MG/DL Calcium Level 7.7 MG/DL Sodium Level 139 MEQ/L Potassium Level 3.3 MEQ/L Chloride Level 104 MEQ/L Carbon Dioxide Level 25.2 MEQ/L Anion Gap 10 MEQ/L Estimat Glomerular Filtration Rate 100 ML/MIN (Swapnil Ivy) Medical Decision Making Impression and Plan A: 87-year-old gentleman with a moderate left frontal convexity and interhemispheric subdural hemorrhage with generalized atrophy after a fall. He is on chronic Eliquis therapy for previous history of stroke 2 years ago and residual left hemiparesis. Pt at high risk for increased hemorrhage and clinical deterioration. Follow up CT head done 12/05 was compared to previous and reveals slight increase in the left convexity subdural hemorrhage. Follow up CT head today is stable. P: Continue with close neuro checks. Anticoagulation obviously on hold. Continue with DVT prophylaxis Continue with GI prophylaxis. (Swapnil Ivy) Attending Statement The exam, history, and the medical decision-making described in the above note were completed with the assistance of the mid-level provider. I reviewed and agree with the findings presented. I attest that I had a [id number] encounter with the patient on the same day, and personally performed and documented my assessment and findings in the medical record. His level of alertness and aphasia fluctuates, earlier was more lethargic and aphasic but now he is more responsive and verbalizing a few words and follows simple commands. No epileptiform activity noted on EEG. Follow-up CT scan of the head is stable compared to yesterday. Continue with close observation, seizure prophylaxis and conservative management. (Babatunde Mcintyre MD) Swapnil Ivy December 06, 2017 10:13 Babatunde Mcintyre MD December 06, 2017 18:28
--- NOTE | 2017-12-06 12:00 | PD.CONS ---
History of Present Illness Service Neurology Consult Requested By Medical Team Reason for Consult seizure, altered mental status Primary Care Physician Unknown History of Present Illness 87 y/o male slipped and fell at home, hit the back of his head and developed a left frontal subdural hematoma. He was admitted and has been followed by neurosurgery. His daughter noted that yesterday he became more lethargic and could not answer questions except for saying yes. she has noticed also that his left arm has become more flexed and he is not using his right arm as much. He has past hx of stroke with left hemiparesis. He lived alone prior to this hospital stay and daughter denies any hx of memory problems. He had a nurse that would come check on him at home. Daughter does not know of any cardiac conditions. He had previously been on Eliquis but is not currently on Eliquis due to the SDH. Was started on Keppra yesterday. Nurse is unsure how many doses he received as it had been PO and he has not been swallowing (Marisa Granados) Review of Systems All other ROS: Unable to obtain (Marisa Granados) Past Family Social History Allergies: Coded Allergies: No Known Allergies (Unverified , 12/04/17) Past Medical History obtained from chart: stroke with left hemiparesis, HTN, hyperlipidemia, glaucoma , osteoporosis Past Surgical History obtained from chart stent placement, EGD, cholecystectomy Active Ordered Medications Current Medications Medications (Trade) Dose Ordered Sig/Sher Route Start Time Stop Time Status Last Admin (Trandate Inj) 10 mg Q4H PRN IV PUSH 12/04/17 05:00 12/05/17 09:53 (Apresoline Inj) 10 mg Q4H PRN IV PUSH 12/04/17 05:00 12/05/17 06:36 Sodium Chloride 1,000 ml @ 84 mls/hr [id number] IV 12/04/17 05:00 12/06/17 04:40 (NS Flush) 2 ml UNSCH PRN IV FLUSH 12/04/17 05:00 (NS Flush) 2 ml BID IV FLUSH 12/04/17 09:00 12/06/17 09:23 (Tylenol) 650 mg Q6H PRN PO 12/04/17 05:00 12/04/17 18:13 (Pepcid Inj) 20 mg Q12HR IV PUSH 12/04/17 09:00 12/06/17 09:22 (Zofran Inj) 4 mg Q6H PRN IV PUSH 12/04/17 05:00 (Albuterol Neb) 2.5 mg Q2HR NEB PRN INH 12/04/17 05:00 ([facility] Information) 1 [id number] XX 12/04/17 05:00 12/04/17 05:00 (Chlorhexidine 2% Cloth) 3 pack Taper DAILY@04 TOP 12/05/17 04:00 12/01/18 03:59 (Chlorhexidine 2% Cloth) 3 pack UNSCH PRN TOP 12/04/17 05:00 (Yanet-Colace) 1 tab BID PO 12/04/17 09:00 12/05/17 09:16 (Milk Of Magnesia Liq) 30 ml Q12H PRN PO 12/04/17 05:00 (Senokot) 17.2 mg Q12H PRN PO 12/04/17 05:00 (Dulcolax Supp) 10 mg DAILY PRN RECTAL 12/04/17 05:00 (Lactulose Liq) 30 ml DAILY PRN PO 12/04/17 05:00 Nicardipine HCl 25 mg/Sodium Chloride 250 ml @ 50 mls/hr TITRATE PRN IV 12/04/17 05:15 12/06/17 07:55 (Norvasc) 5 mg DAILY PO 12/05/17 09:00 12/05/17 09:16 (Lipitor) 10 mg HS PO 12/04/17 21:00 12/04/17 21:14 (Vitamin D3) 1,000 units DAILY PO 12/05/17 09:00 12/05/17 09:16 (CeleXA) 10 mg DAILY PO 12/05/17 09:00 12/05/17 09:16 (Proscar) 5 mg DAILY PO 12/05/17 09:00 12/05/17 09:16 (Mycostatin Powder) 1 applic Q12HR TOPICAL 12/04/17 21:00 12/05/17 20:35 (Flomax) 0.4 mg HS PO 12/04/17 21:00 12/04/17 21:14 (Prinivil) 40 mg DAILY PO 12/05/17 09:00 12/05/17 09:16 (Toprol Xl) 100 mg DAILY PO 12/05/17 09:00 12/05/17 09:16 (Alphagan 0.2% Opth Soln) 1 drop Q12HR EACH EYE 12/04/17 21:00 12/06/17 09:00 (Timoptic 0.5% Opth Soln) 1 drop Q12HR EACH EYE 12/04/17 21:00 12/06/17 09:00 (Microzide) 12.5 mg DAILY PO 12/05/17 09:00 12/05/17 09:16 (Bactroban Nasal 2% Oint) 1 applic BID EACH NARE 12/06/17 09:00 12/13/17 08:59 12/06/17 09:22 Levetriacetam 500 mg/Sodium Chloride 105 ml @ 420 mls/hr Q12HR IV 12/06/17 09:00 12/06/17 09:22 Family History noncontributory Social History no drugs, occasional alcohol, lives alone at home (Marisa Granados) Exam I&O / VS Vital Signs Date Time Temp Pulse Resp B/P (MAP) Pulse Ox O2 Delivery O2 Flow Rate FiO2 12/06/17 08:00 99.4 82 22 133/58 (83) 95 12/06/17 08:00 93 Nasal Cannula 2.00 12/06/17 07:55 87 132/65 12/06/17 06:00 88 12/06/17 04:00 99.8 73 20 129/62 (84) 97 12/06/17 04:00 88 12/06/17 03:17 73 132/60 12/06/17 02:00 89 12/06/17 01:34 96 Nasal Cannula 4.00 12/06/17 00:00 72 12/06/17 00:00 99.8 65 20 126/58 (80) 97 12/05/17 22:00 72 12/05/17 20:35 76 141/62 12/05/17 20:00 76 12/05/17 20:00 99.0 76 21 136/64 (88) 97 12/05/17 19:00 Room Air 98 12/05/17 18:00 78 12/05/17 16:00 78 12/05/17 16:00 99.3 79 19 119/57 (77) 97 12/05/17 16:00 79 12/05/17 15:50 77 113/59 12/05/17 15:50 77 12/05/17 14:00 77 12/05/17 12:00 100.2 78 19 143/65 (91) 97 12/05/17 12:00 78 12/05/17 12:00 78 12/05/17 11:53 95 Nasal Cannula 2.00 Eye: PERRL Exam Comments pt is lethargic but arousable, opens eyes to command but otherwise does not follow commands, answers "yea" to questions, PERRL, spastic left hemiparesis noted in UE, not moving RUE, does not follow commands to move feet, legs, toes, withdraws from stimuli in toes, able to sit upright with help from PT, slouched , no tremor noted, no seizure activity noted, no facial droop, no gaze deviation (Marisa Granados) Review/Management Diagnosis/Plan: (1) Altered mental status ICD Codes: R41.82 - Altered mental status, unspecified Plan: EEG check for sz activity vs encephalopathy MRI brain to rule out stroke at pt off eliquis telemetry (2) CVA (cerebral vascular accident) ICD Codes: I63.9 - Cerebral infarction, unspecified Plan: MRI brain eval for CVA consider MRA brain and CUS if indicated telemetry (3) Aphasia ICD Codes: R47.01 - Aphasia Plan: ? related to sz, stroke, bleed EEG MRI (4) Encephalopathy ICD Codes: G93.40 - Encephalopathy, unspecified Status: Acute Plan: EEG initially showed slowing but no seizure activity repeat EEG today continue IV Keppra check for infectious/metabolic causes (5) TBI (traumatic brain injury) ICD Codes: S06.9X9A - Unspecified intracranial injury with loss of consciousness of unspecified duration, initial encounter Plan: neurosurgery following repeat CT this morning did not show changes (Marisa Granados) Diagnosis/Plan: (1) Encephalopathy ICD Codes: G93.40 - Encephalopathy, unspecified Status: Acute Plan: 2/2 ICH EEG initially showed slowing but no seizure activity repeat EEG today continue IV Keppra check for infectious/metabolic causes check nh3/abg/cxr seen and examined. d/w PA. agree with above (2) TBI (traumatic brain injury) ICD Codes: S06.9X9A - Unspecified intracranial injury with loss of consciousness of unspecified duration, initial encounter Plan: neurosurgery following repeat CT this morning did not show changes (3) Altered mental status ICD Codes: R41.82 - Altered mental status, unspecified Plan: EEG check for sz activity vs encephalopathy MRI brain to rule out stroke at pt off eliquis telemetry (4) Aphasia ICD Codes: R47.01 - Aphasia Plan: ? related to sz, stroke, bleed EEG MRI (5) CVA (cerebral vascular accident) ICD Codes: I63.9 - Cerebral infarction, unspecified Plan: MRI brain eval for CVA consider MRA brain and CUS if indicated telemetry (Sha Jane MD) Marisa Granados December 06, 2017 12:00 Sha Jane MD December 06, 2017 15:07
[2017-12-06] MEDS: ACETAMINOPHEN 325 MG TAB PO PRN (15:00)
--- NOTE | 2017-12-06 15:30 | MG ---
cc: Kisha Barahona MD DATE OF : 1930 AGE: [age] years old. EEG NUMBER: [id number] REQUESTING PHYSICIAN: Swapnil Ivy PA-C ROOM: 1312. NOTE: Asleep with photic stimulation. Lethargic. CT shows parafalcine subdural hematoma stable in both frontal lobes. Repeat study. MEDICATIONS: He is on Keppra. FINDINGS: There is overall background slowing of 5 Hz, symmetrical. At times, there is some delta slowing between delta-theta frequency, tends to fall asleep. EKG is sinus. Photic stimulation was performed at the end of the recording with minimal driving response. No epileptic activity. IMPRESSION: Moderate background slowing consistent with an encephalopathic process. No evidence of any epileptiform features. Clinical correlation. Kisha Barahona MD DF/SB , 02:58 PM , 03:29 PM
--- NOTE | 2017-12-06 16:19 | RADRPT ---
EXAM DATE/TIME: 12/06/2017 15:40 [facility] COMPARISON: No previous studies available for comparison. INDICATIONS : Seizures. SDH. Lethargic. MEDICAL HISTORY : Hypertension. Hypertension. SURGICAL HISTORY : Cholecystectomy. vein graft, cardiac stent 1996, cataract ENCOUNTER: Subsequent ACUITY: 2 day PAIN SCORE: 0/10 LOCATION: cranial TECHNIQUE: Multiplanar, multisequence MRI of the brain was performed without contrast. FINDINGS: Correlation is made with CT performed earlier today. Again seen is acute subdural hematoma. This eber ures up to about 1 cm in thickness interhemispheric region extending obliquely left hemisphere. There is also extra-axial hemorrhage over the left tentorium left to right midline shift is minimal, about 2-3 mm. The findings do not appear to be significantly changed from CT performed earlier today. No r ecent infarction is identified. They are underlying moderate chronic white matter ischemic changes wi th remote small lacunar infarcts in the periventricular white matter on the left and the right basal ganglia. CONCLUSION: 1. Acute subdural hematoma in the interhemispheric region extending to predominantly the left convexi ty up to around 1 cm in diameter, and over the tentorium. No recent infarct. Chronic white matter isc hemic changes as above. Minimal mass effect with 2-3 mm left to right midline shift. Lopez Bradley MD on December 06, 2017 at 16:08 Board Certified Radiologist. This report was verified electronically.
--- NOTE | 2017-12-06 16:30 | RADRPT ---
EXAM DATE/TIME: 12/06/2017 16:11 [facility] COMPARISON: No previous studies available for comparison. INDICATIONS : Short of breath. MEDICAL HISTORY : None. SURGICAL HISTORY : None. ENCOUNTER: Initial ACUITY: 1 day PAIN SCORE: 0/10 LOCATION: Bilateral chest FINDINGS: A single view of the chest demonstrates right rotation of the patient which distorts the heart and me diastinal structures. Heart size appears borderline prominent but well compensated. There may be an a irspace process medially in the right base. CONCLUSION: 1. Possible airspace infiltrate in the medial right base. 2. Borderline prominent but well compensated heart Michael Franks MD on December 06, 2017 at 16:26 Board Certified Radiologist. This report was verified electronically.
[2017-12-06 16:35] LABS: HEMOGLOBIN A1C 5.2 % (4.3-6.0)
[2017-12-06] MEDS ORDERED: cloNIDine HCL 0.1 MG/24 HR PATCH T-DERMAL SCH (18:00)
[2017-12-06] MEDS: metroNIDAZOLE 500 MG INJ 100 ML IV SCH (18:24)
[2017-12-06 18:43] LABS: BACTERIA, URINE OCC /hpf; BILIRUBIN, URINE NEG (NEG); BLOOD, URINE TRACE (NEG); GLUCOSE,URINE NEG (NEG); KETONE, URINE 10 mg/dL (NEG); NITRITE,URINE NEG (NEG); URINE COLOR YELLOW (YELLW/STRAW); URINE LEUKOCYTE ESTERASE LARGE (NEG)
[2017-12-06] MEDS: PIPERACIL-TAZO 4.5 GM PREMIX 100 ML IV SCH (19:46)
[2017-12-06] MEDS: TAMSULOSIN HCL 0.4 MG CAP PO SCH (20:56)
[2017-12-06] MEDS: ATORVASTATIN 10 MG TAB PO SCH (20:57)
[2017-12-07] VITALS (12 sets, daily range): BP systolic 131–162; BP diastolic 63–82; PULSE 60–96; RESP 17–21; TEMP 98.2–99.5; O2SAT 94–99
[2017-12-07] MEDS: PIPERACIL-TAZO 4.5 GM PREMIX 100 ML IV SCH ×4 (02:18→21:23)
[2017-12-07] MEDS: metroNIDAZOLE 500 MG INJ 100 ML IV SCH ×3 (02:19→18:30)
[2017-12-07] MEDS: CHLORHEXIDINE GLUCONATE 2 % 1 PACK (2 CLOTHS) TOP SCH (05:30)
[2017-12-07 06:28] LABS: AUTOMATED NEUTROPHIL # 8.9 TH/MM3 (1.8-7.7); BASOPHIL % 0.2 % (0.0-2.0); EOSINOPHIL # 0.1 TH/MM3 (0-0.4); EOSINOPHIL % 1.3 % (0.0-4.0); HEMOGLOBIN 11.8 GM/DL (13.0-17.0); LYMPH % 10.4 % (9.0-44.0); LYMPHOCYTE # 1.1 TH/MM3 (1.0-4.8); MEAN CELL VOLUME 92.4 FL (80.0-100.0); MEAN CORPUSCULAR HEMOGLOBIN 32.2 PG (27.0-34.0); MEAN CORPUSCULAR HGB CONC 34.8 % (32.0-36.0); MEAN PLATELET VOLUME 7.6 FL (7.0-11.0); MONO % 5.9 % (0.0-8.0); MONOCYTE # 0.6 TH/MM3 (0-0.9); NEUT % 82.2 % (16.0-70.0); PLATELET COUNT 198 TH/MM3 (150-450); RED BLOOD COUNT 3.68 MIL/MM3 (4.50-5.90); RED CELL DISTRIBUTION WIDTH 13.7 % (11.6-17.2); WHITE BLOOD COUNT 10.8 TH/MM3 (4.0-11.0)
[2017-12-07 06:52] LABS: BICARBONATE 26.3 MEQ/L (21.0-32.0); CALCIUM 8.2 MG/DL (8.5-10.1); CREATININE 0.51 MG/DL (0.60-1.30)
--- NOTE | 2017-12-07 07:29 | HHI.PR ---
Review/Management Diagnosis/Plan: (1) Encephalopathy ICD Codes: G93.40 - Encephalopathy, unspecified Status: Acute Plan: 2/2 ICH associated with anticoagulation and HTN EEG- slowing, no sz activity recs more alert cxr findings per medical bp control therapy (2) TBI (traumatic brain injury) ICD Codes: S06.9X9A - Unspecified intracranial injury with loss of consciousness of unspecified duration, initial encounter Plan: neurosurgery following mri brain stable (3) Altered mental status ICD Codes: R41.82 - Altered mental status, unspecified Plan: EEG check for sz activity vs encephalopathy MRI brain to rule out stroke at pt off eliquis telemetry (4) Aphasia ICD Codes: R47.01 - Aphasia Plan: ? related to sz, stroke, bleed EEG MRI (5) CVA (cerebral vascular accident) ICD Codes: I63.9 - Cerebral infarction, unspecified Plan: MRI brain +ich Subjective Subjective Comments No acute events reported No headache No chest pain No dyspnea Active Medications Current Medications Medications (Trade) Dose Ordered Sig/Sher Route Start Time Stop Time Status Last Admin (Trandate Inj) 10 mg Q4H PRN IV PUSH 12/04/17 05:00 12/05/17 09:53 (Apresoline Inj) 10 mg Q4H PRN IV PUSH 12/04/17 05:00 12/05/17 06:36 Sodium Chloride 1,000 ml @ 84 mls/hr [id number] IV 12/04/17 05:00 12/06/17 16:35 (NS Flush) 2 ml UNSCH PRN IV FLUSH 12/04/17 05:00 (NS Flush) 2 ml BID IV FLUSH 12/04/17 09:00 12/06/17 20:55 (Tylenol) 650 mg Q6H PRN PO 12/04/17 05:00 12/06/17 15:00 (Pepcid Inj) 20 mg Q12HR IV PUSH 12/04/17 09:00 12/06/17 20:56 (Zofran Inj) 4 mg Q6H PRN IV PUSH 12/04/17 05:00 (Albuterol Neb) 2.5 mg Q2HR NEB PRN INH 12/04/17 05:00 ([facility] [place] [facility]) 1 [id number] XX 12/04/17 05:00 12/04/17 05:00 (Chlorhexidine 2% Cloth) 3 pack Taper DAILY@04 TOP 12/05/17 04:00 12/01/18 03:59 12/07/17 05:30 (Chlorhexidine 2% Cloth) 3 pack UNSCH PRN TOP 12/04/17 05:00 (Yanet-Colace) 1 tab BID PO 12/04/17 09:00 12/05/17 09:16 (Milk Of Magnesia Liq) 30 ml Q12H PRN PO 12/04/17 05:00 (Senokot) 17.2 mg Q12H PRN PO 12/04/17 05:00 (Dulcolax Supp) 10 mg DAILY PRN RECTAL 12/04/17 05:00 (Lactulose Liq) 30 ml DAILY PRN PO 12/04/17 05:00 Nicardipine HCl 25 mg/Sodium Chloride 250 ml @ 50 mls/hr TITRATE PRN IV 12/04/17 05:15 12/06/17 07:55 (Norvasc) 5 mg DAILY PO 12/05/17 09:00 12/05/17 09:16 (Lipitor) 10 mg HS PO 12/04/17 21:00 12/06/17 20:57 (Vitamin D3) 1,000 units DAILY PO 12/05/17 09:00 12/05/17 09:16 (CeleXA) 10 mg DAILY PO 12/05/17 09:00 12/05/17 09:16 (Proscar) 5 mg DAILY PO 12/05/17 09:00 12/05/17 09:16 (Mycostatin Powder) 1 applic Q12HR TOPICAL 12/04/17 21:00 12/06/17 20:57 (Flomax) 0.4 mg HS PO 12/04/17 21:00 12/04/17 21:14 (Prinivil) 40 mg DAILY PO 12/05/17 09:00 12/05/17 09:16 (Toprol Xl) 100 mg DAILY PO 12/05/17 09:00 12/05/17 09:16 (Alphagan 0.2% Opth Soln) 1 drop Q12HR EACH EYE 12/04/17 21:00 12/06/17 20:54 (Timoptic 0.5% Opth Soln) 1 drop Q12HR EACH EYE 12/04/17 21:00 5/8/18 20:55 (Microzide) 12.5 mg DAILY PO 12/05/17 09:00 12/05/17 09:16 (Bactroban Nasal 2% Oint) 1 applic BID EACH NARE 12/06/17 09:00 12/13/17 08:59 12/06/17 20:55 Levetriacetam 500 mg/Sodium Chloride 105 ml @ 420 mls/hr Q12HR IV 12/06/17 09:00 12/06/17 20:54 (Catapres-Tts 0.1mg Patch.7d) 1 patch Q7D T-DERMAL 12/06/17 18:00 12/06/17 18:24 Piperacillin Sod/ Tazobactam Sod 100 ml @ 200 mls/hr Q6H IV 12/06/17 20:00 12/07/17 02:18 Metronidazole 100 ml @ 100 mls/hr Q8H IV 12/06/17 18:00 12/07/17 02:19 (Albuterol Neb) 2.5 mg QID NEB NEB 12/06/17 20:00 (Protonix) 20 mg DAILY PO 12/07/17 09:00 Allergies Allergies Coded Allergies No Known Allergies (Unverified12/04/17) Review of Systems All other ROS: ROS reviewed as documented in chart Exam I&O / VS Vital Signs Date Time Temp Pulse Resp B/P (MAP) Pulse Ox O2 Delivery O2 Flow Rate FiO2 12/07/17 04:00 99.5 68 19 155/72 (99) 94 12/07/17 00:00 99.4 64 17 152/67 (95) 95 12/06/17 21:15 98 Nasal Cannula 3.00 12/06/17 20:00 99.6 73 16 168/78 (108) 96 12/06/17 19:00 96 Nasal Cannula 2.00 12/06/17 16:00 99.4 75 22 159/60 (93) 95 12/06/17 12:00 101.2 85 22 150/72 (98) 98 12/06/17 08:00 99.4 82 22 133/58 (83) 95 12/06/17 08:00 93 Nasal Cannula 2.00 12/06/17 07:55 87 132/65 General: No acute distress Eye: PERRL Respiratory: Non-labored respirations Neurologic: Alert Exam Comments alert, ox 2, articulates 3-4 words, follows simple requests, eome, resists pupillary exam, face sym, camacho to gravity Objective Micro and Labs Laboratory Tests Test 12/06/17 11:00 12/06/17 14:49 12/06/17 16:00 12/06/17 17:10 Hemoglobin A1c 5.2 Magnesium Level 2.0 Urine Color YELLOW Urine Turbidity CLEAR Urine pH 5.0 Urine Specific [place] 1.016 Urine Protein TRACE Urine Glucose (UA) NEG Urine Ketones 10 Urine Occult Blood TRACE Urine Nitrite NEG Urine Bilirubin NEG Urine Urobilinogen LESS THAN 2.0 Urine Leukocyte Esterase LARGE Urine RBC 3 Urine WBC 67 Urine Bacteria OCC Microscopic Urinalysis Comment CULTURE INDICATED Blood Gas Puncture Site RT RADIAL Blood Gas Patient Temperature 98.6 Blood Gas HCO3 24 Blood Gas Base Excess 0.8 Blood Gas Oxygen Saturation 92 Arterial Blood pH 7.49 Arterial Blood Partial Pressure CO2 32 Arterial Blood Partial Pressure O2 66 Arterial Blood Oxygen Content 13.1 Arterial Blood Carboxyhemoglobin 1.3 Arterial Blood Methemoglobin 1.2 Blood Gas Hemoglobin 10.1 Blood Gas Inspired Oxygen 21 Test 12/06/17 21:55 12/07/17 05:52 Erythrocyte Sedimentation Rate 37 Ammonia 15 C-Reactive Protein 9.70 White Blood Count 10.8 Red Blood Count 3.68 Hemoglobin 11.8 Hematocrit 34.0 Mean Corpuscular Volume 92.4 Mean Corpuscular Hemoglobin 32.2 Mean Corpuscular Hemoglobin Concent 34.8 Red Cell Distribution Width 13.7 Platelet Count 198 Mean Platelet Volume 7.6 Neutrophils (%) (Auto) 82.2 Lymphocytes (%) (Auto) 10.4 Monocytes (%) (Auto) 5.9 Eosinophils (%) (Auto) 1.3 Basophils (%) (Auto) 0.2 Neutrophils # (Auto) 8.9 Lymphocytes # (Auto) 1.1 Monocytes # (Auto) 0.6 Eosinophils # (Auto) 0.1 Basophils # (Auto) 0.0 CBC Comment DIFF FINAL Differential Comment Blood Urea Nitrogen 17 Creatinine 0.51 Random Glucose 109 Calcium Level 8.2 Magnesium Level 2.0 Sodium Level 139 Potassium Level 3.0 Chloride Level 104 Carbon Dioxide Level 26.3 Anion Gap 9 Estimat Glomerular Filtration Rate 154 Date/Time Source Procedure Growth Status 12/06/17 21:55 Blood Peripheral Aerobic Blood Culture Pending Received 12/06/17 21:55 Blood Peripheral Anaerobic Blood Culture Pending Received 12/06/17 16:00 Urine Clean Catch Urine Culture Pending Received Sha Jane MD December 07, 2017 07:29
[2017-12-07] MEDS ORDERED: POTASSIUM PHOSPHATE MONOBASIC 500 MG TAB PO/TUBE PRN (07:30)
[2017-12-07] MEDS ORDERED: MAGNESIUM OXIDE 400 MG TAB PO PRN (07:30)
[2017-12-07] MEDS ORDERED: POTASSIUM PHOSPHATE MONOBASIC 500 MG TAB PO PRN (07:30)
[2017-12-07] MEDS ORDERED: POTASSIUM CHLOR 40 MEQ PREMIX 100 ML IV PRN ×2 (07:30)
[2017-12-07] MEDS ORDERED: SODIUM PHOSPHATE INJ 30 MMOL in SODIUM CHLOR 0.9% 250 ML INJ 240 ML IV PRN (07:30)
[2017-12-07] MEDS ORDERED: POTASSIUM CHLOR 20 MEQ PREMIX 100 ML IV PRN (07:30)
[2017-12-07] MEDS ORDERED: POTASSIUM CHLORIDE 25 MEQ EFFERVESCENT TAB PO PRN (07:30)
[2017-12-07] MEDS ORDERED: POTASSIUM PHOSPHATE INJ 30 MMOL in SODIUM CHLOR 0.9% 250 ML INJ 250 ML IV PRN (07:30)
[2017-12-07] MEDS ORDERED: MAGNESIUM SULFATE INJ 4 GM in SODIUM CHLORIDE 0.9% INJ 92 ML IV PRN (07:30)
[2017-12-07] MEDS ORDERED: MAGNESIUM SULFATE INJ 2 GM in SODIUM CHLORIDE 0.9% INJ 96 ML IV PRN (07:30)
--- NOTE | 2017-12-07 07:33 | HHI.PR ---
Subjective Remarks Follow-up subdural hematoma, pneumonia and abnormal urinalysis. Patient is more awake today oriented to person and place. Denies headache or dizziness. Objective Vitals Vital Signs Date Time Temp Pulse Resp B/P (MAP) Pulse Ox O2 Delivery O2 Flow Rate FiO2 12/07/17 04:00 99.5 68 19 155/72 (99) 94 12/07/17 00:00 99.4 64 17 152/67 (95) 95 12/06/17 21:15 98 Nasal Cannula 3.00 12/06/17 20:00 99.6 73 16 168/78 (108) 96 12/06/17 19:00 96 Nasal Cannula 2.00 12/06/17 16:00 99.4 75 22 159/60 (93) 95 12/06/17 12:00 101.2 85 22 150/72 (98) 98 12/06/17 08:00 99.4 82 22 133/58 (83) 95 12/06/17 08:00 93 Nasal Cannula 2.00 12/06/17 07:55 87 132/65 I/O 12/06/17 12/06/17 12/06/17 12/07/17 12/07/17 12/07/17 07:00 15:00 23:00 07:00 15:00 23:00 Intake Total 0 ml Balance 0 ml Intake Oral 0 ml # Voids 4 6 4 # Bowel Movements 1 1 0 Result Diagram: 12/07/17 0552 12/07/17 0552 Imaging Last Impressions Head CT 12/06/17 0800 Signed Impressions: Service Date/Time: Wednesday, December 06, 2017 05:00 - CONCLUSION: Stable prominent parafalcine subdural hematoma extending into both the left frontal lobe and the left side of the tentorium unchanged from the previous study. Small amounts of extra-axial hemorrhage along the parietal lobe and left temporal lobes are also unchanged. Jensen Gaytan MD Chest X-Ray 12/06/17 0000 Signed Impressions: Service Date/Time: Wednesday, December 06, 2017 16:11 - CONCLUSION: 1. Possible airspace infiltrate in the medial right base. 2. Borderline prominent but well compensated heart Michael Franks MD Brain MRI 12/06/17 0000 Signed Impressions: Service Date/Time: Wednesday, December 06, 2017 15:40 - CONCLUSION: 1. Acute subdural hematoma in the interhemispheric region extending to predominantly the left convexity up to around 1 cm in diameter, and over the tentorium. No recent infarct. Chronic white matter ischemic changes as above. Minimal mass effect with 2-3 mm left to right midline shift. Lopez Bradley MD Objective Remarks Neuro: Awake following commands with generalized weakness Neck: Supple, airway widely patent Chest/pulmonary: Clear, equal in expansion Cardiovascular: S1-S2 regular no gallop or murmur. No JVD. GI/abdomen: Soft, nontender, bowel sounds present. No guarding. Extremities: Warm bilaterally, no edema. Well-perfused. Procedures none A/P Problem List: (1) TBI (traumatic brain injury) ICD Code: S06.9X9A - Unspecified intracranial injury with loss of consciousness of unspecified duration, initial encounter Assessment and Plan 87-year-old male with: Fall status post left subdural hematoma with encephalopathy. Improving mental status Scalp laceration s/p repair History of CVA/TIAs. MRI shows no acute infarction Hyperlipidemia stable Hypertension. Improving Osteoporosis Glaucoma Pneumonia. Stable Abnormal urinalysis Plan: Neuro: Admitted to [facility]. Neuro checks. Repeat head CT without extension of hematoma. Ct keppra sz precautions, neuro checks. Fall precautions. MRI of the brain with subdural hematoma no acute CVA and repeat EEG without seizure. Cardiovascular: Hold Eliquis. Continue metoprolol, Norvasc, lisinopril, hydrocodone thiazide if tolerating p.o. Will use hydralazine as needed for SBP greater than 160 mmHg. Discontinue clonidine patch Pulmonary: Supplemental O2 as needed, bronchodilators as needed. Currently protecting airway. GI/liver: P.o. diet pending swallowing eval. Renal/: IV hydration, follow intake output, monitor and replete electrolytes, follow BUN/creatinine. ID: Start Zosyn and Flagyl to cover for hospital-acquired pneumonia and aspiration follow cultures Endocrine: Watch for hyperglycemia, SSI for glycemic control if needed. Heme: Hold Eliquis. Follow CBC FEN. Patient has dysphagia from TBI. Continue IV hydration pending swallow eval. May need tube feeding however daughter who is the power of attorney at law states patient does not want artificial nutrition. Consult dietitian for TPN or PPN Prophylaxis: SCDs for DVT prophylaxis. PT recommends rehab Daughter has been encouraged to discuss fdc goals with her brother. She is POA for health. Discharge Planning If he remains stable may transfer to telemetry then discharge to retirement facility or back to Gera Arambula MD December 07, 2017 07:33
[2017-12-07] MEDS: LABETALOL HCL 100 MG/20 ML VIAL IV PUSH PRN (08:45)
[2017-12-07] MEDS: SODIUM CHLOR 0.9% 1000 ML INJ 1,000 ML IV SCH ×2 (08:45→16:25)
[2017-12-07] MEDS: RESP: ALBUTEROL 2.5 MG/3 ML NEB (SCH) NEB ×4 (08:46→20:00)
[2017-12-07] MEDS: TIMOLOL MALEATE 0.5% OPHT SOLN 5 ML BTL EACH EYE SCH ×2 (09:00→21:18)
[2017-12-07] MEDS: LISINOPRIL 20 MG TAB PO SCH ×2 (09:00→11:32)
[2017-12-07] MEDS: NYSTATIN 100,000 U/GM PWD 15 GM BTL TOPICAL SCH ×2 (09:00→21:23)
[2017-12-07] MEDS: HYDROCHLOROTHIAZIDE 12.5 MG CAP PO SCH ×2 (09:00→11:32)
[2017-12-07] MEDS: CITALOPRAM HYDROBROMIDE 20 MG TAB PO SCH (09:00)
[2017-12-07] MEDS: SODIUM CHLORIDE 0.9% FLUSH 10 ML FLUSH IV FLUSH SCH ×2 (09:00→21:22)
[2017-12-07] MEDS: MUPIROCIN 2% OINT 1 APPLIC/GM SYR EACH NARE SCH ×2 (09:00→21:22)
[2017-12-07] MEDS: FINASTERIDE 5 MG TAB PO SCH ×2 (09:00→11:32)
[2017-12-07] MEDS: CHOLECALCIFEROL (VIT D3) 1000 UNIT TAB PO SCH (09:00)
[2017-12-07] MEDS: BRIMONIDINE TARTRATE 0.2% OPHT SOLN 5 ML BTL EACH EYE SCH ×2 (09:00→21:18)
[2017-12-07] MEDS: DOCUSATE SODIUM 50 MG/SENNA 8.6 MG TAB PO SCH ×2 (09:00→21:22)
[2017-12-07] MEDS: amLODIPine BESYLATE 5 MG TAB PO SCH ×2 (09:00→11:32)
[2017-12-07] MEDS ORDERED: PANTOPRAZOLE SOD 20 MG DELAYED RELEASE TAB PO SCH (09:00)
[2017-12-07] MEDS: METOPROLOL SUCCINATE 50 MG EXTENDED RELEASE TAB PO SCH ×2 (09:00→11:32)
--- NOTE | 2017-12-07 09:16 | HHI.NSPN ---
(Swapnil Ivy) History Chief Complaint: SDH (Swapnil Ivy) Interval History 87-year-old gentleman who was transferred from [facility] for acute subdural hemorrhage after a fall at home last evening where he slipped and struck his back of his head without loss of consciousness. He relates a mild headache but denies any other particular symptoms. He was transferred to [facility] this morning for further management. CT scan of the head reviewed shows an 8 mm left frontal convexity subdural hemorrhage as well as interhemispheric subdural hemorrhage with generalized atrophy and no midline shift. He is on Eliquis anticoagulation for stroke 2 years ago which his relates was significant and he was comatose on a ventilator for a while and has residual left hemiparesis. Last time he took his Eliquis was last evening. He denies any neck or back pain. He relates a couple weeks ago he had some numbness in his hands which has resolved at this point. 12/05/17: Pt awake and alert. Complains of headache all over but not severe. He has a history of left hemiparesis from previous stroke. No n/v. No chest pain or sob. 12/06/17: Pt has eyes open but more lethargic than yesterday morning He has global aphasia. He says yep to everything. He is not following commands. 12/07/17: Pt more awake today. Opens eyes slightly. Verbalizing appropriately to questions. Denies headaches, nausea, or vomiting. States he is in [place] when asked. (Swapnil Ivy) Review of Systems General: Negative for: fever, chills, insomnia Respiratory: Negative for: shortness of breath, cough, sputum Cardiovascular: Negative for: chest pain Gastrointestinal: Negative for: nausea, vomitting, diarrhea, constipation ( Swapnil Ivy) Exam Results Vital Signs Date Time Temp Pulse Resp B/P (MAP) Pulse Ox O2 Delivery O2 Flow Rate FiO2 12/07/17 08:46 97 Nasal Cannula 3.00 12/07/17 04:00 99.5 68 19 155/72 (99) 12/05/17 19:00 98 (Swapnil Ivy) Physical Examination General: Pt more awake than yesterday morning. Resting in bed in ICU. Eyes: Pupils equal. Sclera anicteric. Resp: CTA bilaterally. Heart: NSR no murmurs Abd: Soft positive bs Skin: No cyanosis or erythema. Muscle: Left hemiparesis from his previous stroke. He is following commands today. Sat Act Instructor hands and moves toes. Difficult to get accurate muscle exam given level of alertness and cooperation. Neuro: Pt awakens more than yesterday. Pupils equal 3mm bilaterally. Speech improved and now answers some simple questions appropriately. Following simple commands now. States he is in [place] when asked. (Swapnil Ivy) Lab, Micro, Other Results Last Impressions Head CT 12/06/17 0800 Signed Impressions: Service Date/Time: Wednesday, December 06, 2017 05:00 - CONCLUSION: Stable prominent parafalcine subdural hematoma extending into both the left frontal lobe and the left side of the tentorium unchanged from the previous study. Small amounts of extra-axial hemorrhage along the parietal lobe and left temporal lobes are also unchanged. Jensen Gaytan MD Chest X-Ray 12/06/17 0000 Signed Impressions: Service Date/Time: Wednesday, December 06, 2017 16:11 - CONCLUSION: 1. Possible airspace infiltrate in the medial right base. 2. Borderline prominent but well compensated heart Michael Franks MD Brain MRI 12/06/17 0000 Signed Impressions: Service Date/Time: Wednesday, December 06, 2017 15:40 - CONCLUSION: 1. Acute subdural hematoma in the interhemispheric region extending to predominantly the left convexity up to around 1 cm in diameter, and over the tentorium. No recent infarct. Chronic white matter ischemic changes as above. Minimal mass effect with 2-3 mm left to right midline shift. Lopez Bradley MD Laboratory Tests Test 12/06/17 11:00 12/06/17 14:49 12/06/17 16:00 12/06/17 17:10 Hemoglobin A1c 5.2 % Magnesium Level 2.0 MG/DL Urine Color YELLOW Urine Turbidity CLEAR Urine pH 5.0 Urine Specific [place] 1.016 Urine Protein TRACE mg/dL Urine Glucose (UA) NEG mg/dL Urine Ketones 10 mg/dL Urine Occult Blood TRACE Urine Nitrite NEG Urine Bilirubin NEG Urine Urobilinogen LESS THAN 2.0 MG/DL Urine Leukocyte Esterase LARGE Urine RBC 3 /hpf Urine WBC 67 /hpf Urine Bacteria OCC /hpf Microscopic Urinalysis Comment CULTURE INDICATED Blood Gas Puncture Site RT RADIAL Blood Gas Patient Temperature 98.6 Blood Gas HCO3 24 mmol/L Blood Gas Base Excess 0.8 mmol/L Blood Gas Oxygen Saturation 92 % Arterial Blood pH 7.49 Arterial Blood Partial Pressure CO2 32 mmHg Arterial Blood Partial Pressure O2 66 mmHg Arterial Blood Oxygen Content 13.1 Vol % Arterial Blood Carboxyhemoglobin 1.3 % Arterial Blood Methemoglobin 1.2 % Blood Gas Hemoglobin 10.1 G/DL Blood Gas Inspired Oxygen 21 % Test 12/06/17 21:55 12/07/17 05:52 Erythrocyte Sedimentation Rate 37 mm/hr Ammonia 15 MCMOL/L C-Reactive Protein 9.70 MG/DL White Blood Count 10.8 TH/MM3 Red Blood Count 3.68 MIL/MM3 Hemoglobin 11.8 GM/DL Hematocrit 34.0 % Mean Corpuscular Volume 92.4 FL Mean Corpuscular Hemoglobin 32.2 PG Mean Corpuscular Hemoglobin Concent 34.8 % Red Cell Distribution Width 13.7 % Platelet Count 198 TH/MM3 Mean Platelet Volume 7.6 FL Neutrophils (%) (Auto) 82.2 % Lymphocytes (%) (Auto) 10.4 % Monocytes (%) (Auto) 5.9 % Eosinophils (%) (Auto) 1.3 % Basophils (%) (Auto) 0.2 % Neutrophils # (Auto) 8.9 TH/MM3 Lymphocytes # (Auto) 1.1 TH/MM3 Monocytes # (Auto) 0.6 TH/MM3 Eosinophils # (Auto) 0.1 TH/MM3 Basophils # (Auto) 0.0 TH/MM3 CBC Comment DIFF FINAL Differential Comment Blood Urea Nitrogen 17 MG/DL Creatinine 0.51 MG/DL Random Glucose 109 MG/DL Calcium Level 8.2 MG/DL Magnesium Level 2.0 MG/DL Sodium Level 139 MEQ/L Potassium Level 3.0 MEQ/L Chloride Level 104 MEQ/L Carbon Dioxide Level 26.3 MEQ/L Anion Gap 9 MEQ/L Estimat Glomerular Filtration Rate 154 ML/MIN Phosphorus Level 1.8 MG/DL (Piazza,Swapnil S. PA) Medical Decision Making Impression and Plan A: 87-year-old gentleman with a moderate left frontal convexity and interhemispheric subdural hemorrhage with generalized atrophy after a fall. He is on chronic Eliquis therapy for previous history of stroke 2 years ago and residual left hemiparesis. Pt at high risk for increased hemorrhage and clinical deterioration. Follow up CT head done 12/05 was compared to previous and reveals slight increase in the left convexity subdural hemorrhage. Follow up CT head 12/06 is stable. P: Continue with close neuro checks. Anticoagulation obviously on hold. Continue with DVT prophylaxis Continue with GI prophylaxis. Increase activity with PT. (Swapnil Ivy) Attending Statement The exam, history, and the medical decision-making described in the above note were completed with the assistance of the mid-level provider. I reviewed and agree with the findings presented. I attest that I had a [id number] encounter with the patient on the same day, and personally performed and documented my assessment and findings in the medical record. More alert and improving speech. Continue with observation and rehabilitation. Discussed with nursing staff. (Babatunde Mcintyre MD) Swapnil Ivy December 07, 2017 09:16 Babatunde Mcintyre MD December 07, 2017 17:02
[2017-12-07] MEDS: levETIRAcetam 500 MG/NS 100 ML IV SCH ×4 (09:35→21:22)
[2017-12-07] MEDS: niCARdipine 25 MG/NS 250 ML Vial2Bag or IV room IV PRN ×2 (09:38)
[2017-12-07] MEDS: POTASSIUM CHLOR 20 MEQ PREMIX 100 ML IV PRN ×3 (09:38→17:14)
[2017-12-07] MEDS: FAMOTIDINE 20 MG/2 ML VIAL IV PUSH SCH ×2 (10:37→21:23)
--- NOTE | 2017-12-07 15:18 | PQ ---
Physician Query Response Document PATIENT: REGINA SULLIVAN : 1930 ADMIT DATE: 12/04/2017 4:00 AM DISCH DATE: RESPONDING PROVIDER #: Lizy QUERY TEXT: CDS Clarification Compression of brain in the setting of an acute SDH with MRI showing minimal mass effect with 2-3 mm left to right shift requiring ICU admit, frequent neuro checks and holding Eliquis. Other explanation of clinical findings. Unable to determine (no explanation for clinical findings). The patient's Clinical Indicators include: The medical record reflects the following clinical findings, treatment, and risk factors. * Clinical Indicators: Brain MRI reveals mass effect with 2-3 mm left to right midline shift; increas ing lethargy and global aphasia * Risk Factors: Acute Subdural hematoma * Treatment: ICU admit, EEG, hold Eliquis, neuro checks Please clarify and document your clinical opinion in the progress notes and discharge summary includi ng the definitive and/or presumptive diagnosis (suspected or probable), related to the above clinical findings. Please include clinical findings supporting your diagnosis. Thank you, Izabel Faria CDS: Izabel Faria Patient Unit: [id number] Contact Number: [phone] Room: 1312 Query created by: Izabel Faria on 12/07/2017 1:20 PM RESPONSE TEXT: [facility]I S/p fall Electronically signed by: Gera Fuchs MD 12/07/2017 3:14 PM
[2017-12-07] MEDS: ATORVASTATIN 10 MG TAB PO SCH (21:22)
[2017-12-07] MEDS: TAMSULOSIN HCL 0.4 MG CAP PO SCH (21:22)
[2017-12-08] VITALS (13 sets, daily range): BP systolic 142–180; BP diastolic 65–84; PULSE 60–67; RESP 16–24; TEMP 97.8–99.1; O2SAT 90–97
[2017-12-08] MEDS: SODIUM CHLOR 0.9% 1000 ML INJ 1,000 ML IV SCH (00:47)
[2017-12-08] MEDS: metroNIDAZOLE 500 MG INJ 100 ML IV SCH ×3 (01:57→17:54)
[2017-12-08] MEDS: PIPERACIL-TAZO 4.5 GM PREMIX 100 ML IV SCH ×5 (01:57→21:37)
[2017-12-08] MEDS: CHLORHEXIDINE GLUCONATE 2 % 1 PACK (2 CLOTHS) TOP SCH (02:06)
[2017-12-08] MEDS: hydrALAZINE HCL 20 MG/ML VIAL IV PUSH PRN (03:19)
[2017-12-08 07:02] LABS: BICARBONATE 24.8 MEQ/L (21.0-32.0); CREATININE 0.58 MG/DL (0.60-1.30)
[2017-12-08] MEDS: POTASSIUM CHLOR 20 MEQ PREMIX 100 ML IV PRN ×3 (07:54→12:43)
[2017-12-08] MEDS: CITALOPRAM HYDROBROMIDE 20 MG TAB PO SCH (08:03)
[2017-12-08] MEDS: HYDROCHLOROTHIAZIDE 12.5 MG CAP PO SCH (08:03)
[2017-12-08] MEDS: FINASTERIDE 5 MG TAB PO SCH (08:03)
[2017-12-08] MEDS: METOPROLOL SUCCINATE 50 MG EXTENDED RELEASE TAB PO SCH (08:03)
[2017-12-08] MEDS: LISINOPRIL 20 MG TAB PO SCH (08:03)
[2017-12-08] MEDS: CHOLECALCIFEROL (VIT D3) 1000 UNIT TAB PO SCH (08:03)
[2017-12-08] MEDS: levETIRAcetam 500 MG/NS 100 ML IV SCH ×2 (08:03)
[2017-12-08] MEDS: SODIUM CHLORIDE 0.9% FLUSH 10 ML FLUSH IV FLUSH SCH ×2 (08:04→21:00)
[2017-12-08] MEDS: TIMOLOL MALEATE 0.5% OPHT SOLN 5 ML BTL EACH EYE SCH ×2 (08:04→21:00)
[2017-12-08] MEDS: MUPIROCIN 2% OINT 1 APPLIC/GM SYR EACH NARE SCH ×2 (08:04→21:28)
[2017-12-08] MEDS: amLODIPine BESYLATE 5 MG TAB PO SCH ×2 (08:04→21:28)
[2017-12-08] MEDS: FAMOTIDINE 20 MG/2 ML VIAL IV PUSH SCH (08:04)
[2017-12-08] MEDS: NYSTATIN 100,000 U/GM PWD 15 GM BTL TOPICAL SCH ×2 (08:04→21:00)
[2017-12-08] MEDS: BRIMONIDINE TARTRATE 0.2% OPHT SOLN 5 ML BTL EACH EYE SCH ×2 (08:04→21:00)
[2017-12-08] MEDS: LABETALOL HCL 100 MG/20 ML VIAL IV PUSH PRN (08:20)
[2017-12-08] MEDS: DOCUSATE SODIUM 50 MG/SENNA 8.6 MG TAB PO SCH (08:25)
[2017-12-08] MEDS: RESP: ALBUTEROL 2.5 MG/3 ML NEB (SCH) NEB ×2 (08:30→11:57)
--- NOTE | 2017-12-08 08:36 | HHI.PR ---
Review/Management Diagnosis/Plan: (1) Encephalopathy ICD Codes: G93.40 - Encephalopathy, unspecified Status: Acute Plan: 2/2 ICH associated with anticoagulation and HTN EEG- slowing, no sz activity on keppra recs doing well ok for 5th floor with tele from neurology bp control therapy (2) TBI (traumatic brain injury) ICD Codes: S06.9X9A - Unspecified intracranial injury with loss of consciousness of unspecified duration, initial encounter Plan: neurosurgery following mri brain stable (3) Altered mental status ICD Codes: R41.82 - Altered mental status, unspecified Plan: improved 2/2 ICH (4) Aphasia ICD Codes: R47.01 - Aphasia Plan: improved; 2/2 ich (5) CVA (cerebral vascular accident) ICD Codes: I63.9 - Cerebral infarction, unspecified Plan: MRI brain +ich Subjective Subjective Comments No acute events reported No headache No chest pain No dyspnea Active Medications Current Medications Medications (Trade) Dose Ordered Sig/Sher Route Start Time Stop Time Status Last Admin (Trandate Inj) 10 mg Q4H PRN IV PUSH 12/04/17 05:00 12/08/17 08:20 (Apresoline Inj) 10 mg Q4H PRN IV PUSH 12/04/17 05:00 12/08/17 03:19 Sodium Chloride 1,000 ml @ 84 mls/hr [id number] IV 12/04/17 05:00 12/08/17 00:47 (NS Flush) 2 ml UNSCH PRN IV FLUSH 12/04/17 05:00 (NS Flush) 2 ml BID IV FLUSH 12/04/17 09:00 12/08/17 08:04 (Tylenol) 650 mg Q6H PRN PO 12/04/17 05:00 12/06/17 15:00 (Pepcid Inj) 20 mg Q12HR IV PUSH 12/04/17 09:00 12/08/17 08:04 (Zofran Inj) 4 mg Q6H PRN IV PUSH 12/04/17 05:00 (Albuterol Neb) 2.5 mg Q2HR NEB PRN INH 12/04/17 05:00 ([facility] Nursing Information) 1 Q361D XX 12/04/17 05:00 12/04/17 05:00 (Chlorhexidine 2% Cloth) 3 pack Taper DAILY@04 TOP 12/05/17 04:00 12/01/18 03:59 12/07/17 05:30 (Chlorhexidine 2% Cloth) 3 pack UNSCH PRN TOP 12/04/17 05:00 (Yanet-Colace) 1 tab BID PO 12/04/17 09:00 12/07/17 21:22 (Milk Of Magnesia Liq) 30 ml Q12H PRN PO 12/04/17 05:00 (Senokot) 17.2 mg Q12H PRN PO 12/04/17 05:00 (Dulcolax Supp) 10 mg DAILY PRN RECTAL 12/04/17 05:00 (Lactulose Liq) 30 ml DAILY PRN PO 12/04/17 05:00 Nicardipine HCl 25 mg/Sodium Chloride 250 ml @ 50 mls/hr TITRATE PRN IV 12/04/17 05:15 12/07/17 09:38 (Norvasc) 5 mg DAILY PO 12/05/17 09:00 12/08/17 08:04 (Lipitor) 10 mg HS PO 12/04/17 21:00 12/07/17 21:22 (Vitamin D3) 1,000 units DAILY PO 12/05/17 09:00 12/08/17 08:03 (CeleXA) 10 mg DAILY PO 12/05/17 09:00 12/08/17 08:03 (Proscar) 5 mg DAILY PO 12/05/17 09:00 12/08/17 08:03 (Mycostatin Powder) 1 applic Q12HR TOPICAL 12/04/17 21:00 12/08/17 08:04 (Flomax) 0.4 mg HS PO 12/04/17 21:00 12/07/17 21:22 (Prinivil) 40 mg DAILY PO 12/05/17 09:00 12/08/17 08:03 (Toprol Xl) 100 mg DAILY PO 12/05/17 09:00 12/08/17 08:03 (Alphagan 0.2% Opth Soln) 1 drop Q12HR EACH EYE 12/04/17 21:00 12/08/17 08:04 (Timoptic 0.5% Opth Soln) 1 drop Q12HR EACH EYE 12/04/17 21:00 12/08/17 08:04 (Microzide) 12.5 mg DAILY PO 12/05/17 09:00 12/08/17 08:03 (Bactroban Nasal 2% Oint) 1 applic BID EACH NARE 12/06/17 09:00 12/13/17 08:59 12/08/17 08:04 Levetriacetam 500 mg/Sodium Chloride 105 ml @ 420 mls/hr Q12HR IV 12/06/17 09:00 12/08/17 08:03 Piperacillin Sod/ Tazobactam Sod 100 ml @ 200 mls/hr Q6H IV 12/06/17 20:00 12/08/17 08:02 Metronidazole 100 ml @ 100 mls/hr Q8H IV 12/06/17 18:00 12/08/17 01:57 (Albuterol Neb) 2.5 mg QID NEB NEB 12/06/17 20:00 12/07/17 20:00 Potassium Chloride 100 ml @ 50 mls/hr Q2H PRN IV 12/07/17 07:30 Potassium Chloride 100 ml @ 50 mls/hr Q2H PRN IV 12/07/17 07:30 12/08/17 07:54 (K-Lyte Cl Eff) 50 meq UNSCH PRN PO 12/07/17 07:30 Potassium Chloride 100 ml @ 25 mls/hr UNSCH PRN IV 12/07/17 07:30 Potassium Chloride 100 ml @ 50 mls/hr Q2H PRN IV 12/07/17 07:30 Magnesium Sulfate 4 gm/Sodium Chloride 100 ml @ 50 mls/hr UNSCH PRN IV 12/07/17 07:30 (Mag-Ox) 800 mg UNSCH PRN PO 12/07/17 07:30 Magnesium Sulfate 2 gm/Sodium Chloride 100 ml @ 50 mls/hr UNSCH PRN IV 12/07/17 07:30 (K-Phos) 2,000 mg Q4H PRN PO 12/07/17 07:30 Sodium Phosphate 30 mmol/Sodium Chloride 250 ml @ 42 mls/hr UNSCH PRN IV 12/07/17 07:30 (K-Phos) 2,000 mg UNSCH PRN PO/TUBE 12/07/17 07:30 Potassium Phosphate 30 mmol/ Sodium Chloride 260 ml @ 42 mls/hr UNSCH PRN IV 12/07/17 07:30 Allergies Allergies Coded Allergies No Known Allergies (Unverified12/04/17) Review of Systems All other ROS: ROS reviewed as documented in chart Exam I&O / VS Vital Signs Date Time Temp Pulse Resp B/P (MAP) Pulse Ox O2 Delivery O2 Flow Rate FiO2 12/08/17 08:00 98.4 64 19 173/77 (109) 96 12/08/17 08:00 64 12/08/17 07:00 99 Nasal Cannula 2.00 12/08/17 06:00 60 12/08/17 04:00 60 20 142/65 (90) 95 12/08/17 04:00 60 12/08/17 03:00 165/73 (103) 12/08/17 02:00 62 12/08/17 00:00 97.8 60 24 151/72 (98) 95 12/08/17 00:00 60 12/07/17 22:00 96 12/07/17 20:03 95 Nasal Cannula 2.00 12/07/17 20:00 94 12/07/17 20:00 98.2 66 17 153/82 (105) 97 12/07/17 18:00 83 12/07/17 16:00 60 12/07/17 16:00 98.6 60 21 149/68 (95) 95 12/07/17 14:00 66 12/07/17 12:00 69 12/07/17 12:00 99.0 64 19 131/63 (85) 99 12/07/17 10:00 72 12/07/17 09:38 67 169/77 12/07/17 08:46 97 Nasal Cannula 3.00 General: No acute distress Eye: PERRL Respiratory: Non-labored respirations Neurologic: Alert Exam Comments alert, ox 2-3, more articulate, follows simple requests, eomi, ou 4-3mm, face sym, camacho to gravity with increased tone in ue, no clonus, planterflexor Objective Micro and Labs Laboratory Tests Test 12/08/17 05:28 Blood Urea Nitrogen 13 Creatinine 0.58 Random Glucose 101 Calcium Level 8.0 Magnesium Level 2.0 Sodium Level 137 Potassium Level 2.8 Chloride Level 101 Carbon Dioxide Level 24.8 Anion Gap 11 Estimat Glomerular Filtration Rate 133 Date/Time Source Procedure Growth Status 12/06/17 21:55 Blood Peripheral Aerobic Blood Culture - Preliminary NO GROWTH IN 1 DAY Resulted 12/06/17 21:55 Blood Peripheral Anaerobic Blood Culture - Preliminary NO GROWTH IN 1 DAY Resulted 12/06/17 16:00 Urine Clean Catch Urine Culture - Preliminary Group D Enterococcus Resulted Sha Jane MD December 08, 2017 08:36
[2017-12-08] MEDS: NS + KCL 20 MEQ INJ 1,000 ML IV SCH (09:15)
--- NOTE | 2017-12-08 11:52 | HHI.NSPN ---
(Swapnil Ivy) History Chief Complaint: SDH (Swapnil Ivy) Interval History 87-year-old gentleman who was transferred from [facility] for acute subdural hemorrhage after a fall at home last evening where he slipped and struck his back of his head without loss of consciousness. He relates a mild headache but denies any other particular symptoms. He was transferred to [facility] this morning for further management. CT scan of the head reviewed shows an 8 mm left frontal convexity subdural hemorrhage as well as interhemispheric subdural hemorrhage with generalized atrophy and no midline shift. He is on Eliquis anticoagulation for stroke 2 years ago which his relates was significant and he was comatose on a ventilator for a while and has residual left hemiparesis. Last time he took his Eliquis was last evening. He denies any neck or back pain. He relates a couple weeks ago he had some numbness in his hands which has resolved at this point. 12/05/17: Pt awake and alert. Complains of headache all over but not severe. He has a history of left hemiparesis from previous stroke. No n/v. No chest pain or sob. 12/06/17: Pt has eyes open but more lethargic than yesterday morning He has global aphasia. He says yep to everything. He is not following commands. 12/07/17: Pt more awake today. Opens eyes slightly. Verbalizing appropriately to questions. Denies headaches, nausea, or vomiting. States he is in [place] when asked. 12/08/17: Pt continues to be more alert. He complains of frontal headache. No nausea/vomiting. No chest pain or shortness of breath. (Swapnil Ivy) Review of Systems General: Negative for: fever, chills, insomnia Respiratory: Negative for: shortness of breath, cough, sputum Cardiovascular: Negative for: chest pain Gastrointestinal: Positive for: diarrhea, Negative for: nausea, vomitting, constipation (wSapnil Ivy) Exam Results Vital Signs Date Time Temp Pulse Resp B/P (MAP) Pulse Ox O2 Delivery O2 Flow Rate FiO2 12/08/17 10:00 67 12/08/17 08:00 98.4 19 173/77 (109) 96 12/08/17 07:00 Nasal Cannula 2.00 12/05/17 19:00 98 Intake and Output 12/08/17 12/08/17 12/09/17 08:00 16:00 00:00 Intake Total 560 ml 405 ml Output Total 550 ml Balance 10 ml 405 ml (Swapnil Ivy) Physical Examination General: Pt continues to be more awake and alert. Resting in bed in ICU. Eyes: Pupils equal. Sclera anicteric. Resp: CTA bilaterally. Heart: NSR no murmurs Abd: Soft positive bs Skin: No cyanosis or erythema. Muscle: Left hemiparesis from his previous stroke. He is following commands. 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 Difficult to get accurate muscle exam given level of alertness and cooperation. Neuro: Pt continues to be more alert. Pupils equal 3mm bilaterally. Speech improved and answers some simple questions appropriately. Following simple commands now. (Swapnil Ivy) Lab, Micro, Other Results Last Impressions Head CT 12/06/17 0800 Signed Impressions: Service Date/Time: Wednesday, December 06, 2017 05:00 - CONCLUSION: Stable prominent parafalcine subdural hematoma extending into both the left frontal lobe and the left side of the tentorium unchanged from the previous study. Small amounts of extra-axial hemorrhage along the parietal lobe and left temporal lobes are also unchanged. Jensen Gaytan MD Chest X-Ray 12/06/17 Signed Impressions: Service Date/Time: Wednesday, December 06, 2017 16:11 - CONCLUSION: 1. Possible airspace infiltrate in the medial right base. 2. Borderline prominent but well compensated heart Michael Franks MD Brain MRI 12/06/17 Signed Impressions: Service Date/Time: Wednesday, December 06, 2017 15:40 - CONCLUSION: 1. Acute subdural hematoma in the interhemispheric region extending to predominantly the left convexity up to around 1 cm in diameter, and over the tentorium. No recent infarct. Chronic white matter ischemic changes as above. Minimal mass effect with 2-3 mm left to right midline shift. Lopez Bradley MD Laboratory Tests Test 12/08/17 05:28 Blood Urea Nitrogen 13 MG/DL Creatinine 0.58 MG/DL Random Glucose 101 MG/DL Calcium Level 8.0 MG/DL Magnesium Level 2.0 MG/DL Sodium Level 137 MEQ/L Potassium Level 2.8 MEQ/L Chloride Level 101 MEQ/L Carbon Dioxide Level 24.8 MEQ/L Anion Gap 11 MEQ/L Estimat Glomerular Filtration Rate 133 ML/MIN 12/08/17 12/08/17 12/09/17 15:00 23:00 07:00 Intake Total 405 ml Balance 405 ml IV Total 405 ml (Swapnil Ivy) Medical Decision Making Impression and Plan A: 87-year-old gentleman with a moderate left frontal convexity and interhemispheric subdural hemorrhage with generalized atrophy after a fall. He is on chronic Eliquis therapy for previous history of stroke 2 years ago and residual left hemiparesis. Pt at high risk for increased hemorrhage and clinical deterioration. Follow up CT head done 12/05 was compared to previous and reveals slight increase in the left convexity subdural hemorrhage. Follow up CT head 12/06 is stable. P: Pt being transferred to med/surg floor Anticipate transfer to rehab tomorrow if stable. Discussed plan with family who is in agreement. Increase activity with PT. (Swapnil Ivy) Attending Statement The exam, history, and the medical decision-making described in the above note were completed with the assistance of the mid-level provider. I reviewed and agree with the findings presented. I attest that I had a [id number] encounter with the patient on the same day, and personally performed and documented my assessment and findings in the medical record. Neurologically continues to improve with improving aphasia. Follow-up CT scan of the head in 2 weeks and can be discharged to rehab when accepted. (Babatunde Mcintyre MD) Swapnil Ivy December 08, 2017 11:52 Babatunde Mcintyre MD December 08, 2017 16:36
--- NOTE | 2017-12-08 13:12 | HHI.PR ---
Subjective Remarks Follow-up subdural hematoma. Denies headache or dizziness. Having loose stools on Yanet-Colace denies nausea and abdominal pain discussed with RN stand stool for C. difficile. Objective Vitals Vital Signs Date Time Temp Pulse Resp B/P (MAP) Pulse Ox O2 Delivery O2 Flow Rate FiO2 12/08/17 12:00 98.7 61 16 157/73 (101) 97 12/08/17 12:00 61 12/08/17 11:59 96 Nasal Cannula 3.00 12/08/17 10:00 67 12/08/17 08:00 98.4 64 19 173/77 (109) 96 12/08/17 08:00 64 12/08/17 07:00 99 Nasal Cannula 2.00 12/08/17 06:00 60 12/08/17 04:00 60 20 142/65 (90) 95 12/08/17 04:00 60 12/08/17 03:00 165/73 (103) 12/08/17 02:00 62 12/08/17 00:00 97.8 60 24 151/72 (98) 95 12/08/17 00:00 60 12/07/17 22:00 96 12/07/17 20:03 95 Nasal Cannula 2.00 12/07/17 20:00 94 12/07/17 20:00 98.2 66 17 153/82 (105) 97 12/07/17 18:00 83 12/07/17 16:00 60 12/07/17 16:00 98.6 60 21 149/68 (95) 95 12/07/17 14:00 66 I/O 12/07/17 12/07/17 12/07/17 12/08/17 12/08/17 12/08/17 07:00 15:00 23:00 07:00 15:00 23:00 Intake Total 400 ml 340 ml 760 ml 405 ml Output Total 550 ml Balance 400 ml 340 ml 210 ml 405 ml Intake Oral 240 ml 360 ml IV Total 400 ml 100 ml 400 ml 405 ml Output Urine Total 550 ml # Voids 4 7 # Bowel Movements 0 1 2 Result Diagram: 12/07/17 0552 12/08/17 0528 Imaging Last Impressions Head CT 12/06/17 0800 Signed Impressions: Service Date/Time: Wednesday, December 06, 2017 05:00 - CONCLUSION: Stable prominent parafalcine subdural hematoma extending into both the left frontal lobe and the left side of the tentorium unchanged from the previous study. Small amounts of extra-axial hemorrhage along the parietal lobe and left temporal lobes are also unchanged. Jensen Gaytan MD Chest X-Ray 12/06/17 0000 Signed Impressions: Service Date/Time: Wednesday, December 06, 2017 16:11 - CONCLUSION: 1. Possible airspace infiltrate in the medial right base. 2. Borderline prominent but well compensated heart Michael Franks MD Brain MRI 12/06/17 0000 Signed Impressions: Service Date/Time: Wednesday, December 06, 2017 15:40 - CONCLUSION: 1. Acute subdural hematoma in the interhemispheric region extending to predominantly the left convexity up to around 1 cm in diameter, and over the tentorium. No recent infarct. Chronic white matter ischemic changes as above. Minimal mass effect with 2-3 mm left to right midline shift. Lopez Bradley MD Objective Remarks Neuro: Awake following commands with generalized weakness Neck: Supple, airway widely patent Chest/pulmonary: Clear, equal in expansion Cardiovascular: S1-S2 regular no gallop or murmur. No JVD. GI/abdomen: Soft, nontender, bowel sounds present. No guarding. Extremities: Warm bilaterally, no edema. Well-perfused. Procedures none A/P Problem List: (1) TBI (traumatic brain injury) ICD Code: S06.9X9A - Unspecified intracranial injury with loss of consciousness of unspecified duration, initial encounter Assessment and Plan 87-year-old male with: Left subdural hematoma status post fall with encephalopathy. Improving mental status I think he is back to his baseline but he has deconditioning will need rehabilitation. Switch to p.o. Keppra. Continue to hold Eliquis Scalp laceration s/p repair History of CVA/TIAs. MRI shows no acute infarction Hyperlipidemia stable Hypertension. Improving will increase Norvasc to 5 mg twice a day and continue rest of home medications Osteoporosis Glaucoma Pneumonia. Stable switch to p.o. Augmentin tomorrow. Repeat chest x-ray in 6 weeks Urine culture with group D enterococcus follow-up sensitivity Prophylaxis: SCDs for DVT prophylaxis. PT recommends rehab Daughter has been encouraged to discuss truck terminal manager goals with her brother. She is POA for health. Discharge Planning Stable for telemetry then long term facility tomorrow Gera Fuchs MD December 08, 2017 13:12
[2017-12-08] MEDS ORDERED: ENALAPRILAT 1.25 MG/ML VIAL IV PUSH PRN (16:00)
[2017-12-08] MEDS ORDERED: cloNIDine HCL 0.1 MG TAB PO PRN (16:00)
[2017-12-08] MEDS: LACTOBACILLUS ACIDOPHILUS TAB PO SCH (16:27)
[2017-12-08] MEDS ORDERED: AMLO5 PO (17:18)
[2017-12-08] MEDS ORDERED: LEVE500 PO (17:18)
[2017-12-08] MEDS ORDERED: LACT PO (17:18)
[2017-12-08] MEDS ORDERED: BACTOIN EACH NARE (17:18)
[2017-12-08] MEDS ORDERED: POTA20TA5 PO (17:18)
--- NOTE | 2017-12-08 17:18 | HHI.DCPOC ---
Discharge Care Plan Your Health Problems Are: Difficulty with ADL Exercise Tolerance Goals to Promote Your Health * To prevent worsening of your condition and complications * To maintain your health at the optimal level Directions to Meet Your Goals Take your medications as prescribed Follow your dietary instruction Follow activity as directed Keep your appointments as scheduled Take your immunizations and boosters as scheduled If your symptoms worsen call your PCP, if no PCP go to Urgent Care Center or Emergency Room Smoking is Dangerous to Your Health. Avoid second hand smoke Call the 24-hour hour crisis hotline for domestic abuse at Gera Fuchs MD December 08, 2017 17:18
[2017-12-08] MEDS: levETIRAcetam 500 MG TAB PO SCH (21:28)
[2017-12-08] MEDS: ATORVASTATIN 10 MG TAB PO SCH (21:29)
[2017-12-08] MEDS: TAMSULOSIN HCL 0.4 MG CAP PO SCH (21:39)
[2017-12-09] VITALS: BP 129/55; PULSE 60; RESP 22; TEMP 98.5; O2SAT 94
[2017-12-09] MEDS: CHLORHEXIDINE GLUCONATE 2 % 1 PACK (2 CLOTHS) TOP SCH (04:00)
[2017-12-09] MEDS: NS + KCL 20 MEQ INJ 1,000 ML IV SCH ×2 (05:06→12:08)
[2017-12-09] MEDS: ACETAMINOPHEN 325 MG TAB PO PRN (06:18)
[2017-12-09 06:42] VITALS: BP 160/75; PULSE 60; RESP 24; TEMP 97.9; O2SAT 93
[2017-12-09 07:55] LABS: BICARBONATE 22.9 MEQ/L (21.0-32.0); CALCIUM 7.6 MG/DL (8.5-10.1); CREATININE 0.58 MG/DL (0.60-1.30); MAGNESIUM 1.9 MG/DL (1.5-2.5)
--- NOTE | 2017-12-09 07:58 | HHI.PR ---
Review/Management Diagnosis/Plan: (1) Encephalopathy ICD Codes: G93.40 - Encephalopathy, unspecified Status: Acute Plan: 2/2 ICH associated with anticoagulation and HTN EEG- slowing, no sz activity on keppra recs neuro stable bp improving; goal 120/80 d/c planning from neurology may need inpt rehab (2) TBI (traumatic brain injury) ICD Codes: S06.9X9A - Unspecified intracranial injury with loss of consciousness of unspecified duration, initial encounter Plan: neurosurgery following mri brain stable (3) Altered mental status ICD Codes: R41.82 - Altered mental status, unspecified Plan: improved 2/2 ICH (4) Aphasia ICD Codes: R47.01 - Aphasia Plan: improved; 2/2 ich (5) CVA (cerebral vascular accident) ICD Codes: I63.9 - Cerebral infarction, unspecified Plan: MRI brain +ich Subjective Subjective Comments No acute events reported No headache No chest pain No dyspnea Active Medications Current Medications Medications (Trade) Dose Ordered Sig/Sher Route Start Time Stop Time Status Last Admin (NS Flush) 2 ml UNSCH PRN IV FLUSH 12/04/17 05:00 (NS Flush) 2 ml BID IV FLUSH 12/04/17 09:00 12/08/17 08:04 (Tylenol) 650 mg Q6H PRN PO 12/04/17 05:00 12/09/17 06:18 (Zofran Inj) 4 mg Q6H PRN IV PUSH 12/04/17 05:00 (Albuterol Neb) 2.5 mg Q2HR NEB PRN INH 12/04/17 05:00 ([facility] Nursing Information) 1 Q361D XX 12/04/17 05:00 12/04/17 05:00 (Chlorhexidine 2% Cloth) 3 pack Taper DAILY@04 TOP 12/05/17 04:00 12/01/18 03:59 12/07/17 05:30 (Chlorhexidine 2% Cloth) 3 pack UNSCH PRN TOP 12/04/17 05:00 (Milk Of Magnesia Liq) 30 ml Q12H PRN PO 12/04/17 05:00 (Senokot) 17.2 mg Q12H PRN PO 12/04/17 05:00 (Dulcolax Supp) 10 mg DAILY PRN RECTAL 12/04/17 05:00 (Lactulose Liq) 30 ml DAILY PRN PO 12/04/17 05:00 (Lipitor) 10 mg HS PO 12/04/17 21:00 12/08/17 21:29 (Vitamin D3) 1,000 units DAILY PO 12/05/17 09:00 12/08/17 08:03 (CeleXA) 10 mg DAILY PO 12/05/17 09:00 12/08/17 08:03 (Proscar) 5 mg DAILY PO 12/05/17 09:00 12/08/17 08:03 (Mycostatin Powder) 1 applic Q12HR TOPICAL 12/04/17 21:00 12/08/17 21:00 (Flomax) 0.4 mg HS PO 12/04/17 21:00 12/08/17 21:39 (Prinivil) 40 mg DAILY PO 12/05/17 09:00 12/08/17 08:03 (Toprol Xl) 100 mg DAILY PO 12/05/17 09:00 12/08/17 08:03 (Alphagan 0.2% Opth Soln) 1 drop Q12HR EACH EYE 12/04/17 21:00 12/08/17 08:04 (Timoptic 0.5% Opth Soln) 1 drop Q12HR EACH EYE 12/04/17 21:00 12/08/17 08:04 (Microzide) 12.5 mg DAILY PO 12/05/17 09:00 12/08/17 08:03 (Bactroban Nasal 2% Oint) 1 applic BID EACH NARE 12/06/17 09:00 12/13/17 08:59 12/08/17 21:28 (Albuterol Neb) 2.5 mg QID NEB NEB 12/06/17 20:00 12/08/17 11:57 Potassium Chloride/Sodium Chloride 1,000 ml @ 70 mls/hr [id number] IV 12/08/17 09:15 12/09/17 05:06 (KCl) 20 meq DAILY PO 12/09/17 09:00 (Keppra) 500 mg Q12HR PO 12/08/17 21:00 12/08/17 21:28 (Lactinex) 1 tab TID PO 12/08/17 18:00 12/08/17 16:27 (Norvasc) 5 mg BID PO 12/08/17 21:00 12/08/17 21:28 (Vasotec Inj) 1.25 mg Q6H PRN IV PUSH 12/08/17 16:00 (Catapres) 0.1 mg Q6H PRN PO 12/08/17 16:00 12/08/17 16:27 (Cipro) 500 mg Q12HR PO 12/09/17 09:00 Allergies Allergies Coded Allergies No Known Allergies (Unverified12/04/17) Review of Systems All other ROS: ROS reviewed as documented in chart Exam I&O / VS Vital Signs Date Time Temp Pulse Resp B/P (MAP) Pulse Ox O2 Delivery O2 Flow Rate FiO2 12/09/17 06:42 97.9 60 24 160/75 (103) 93 12/09/17 00:00 98.5 60 22 129/55 (79) 94 12/08/17 20:15 98 Nasal Cannula 2.00 12/08/17 20:04 62 12/08/17 20:00 99.1 60 19 167/78 (107) 96 12/08/17 16:49 63 12/08/17 16:00 98.9 62 18 180/84 (116) 90 12/08/17 12:00 98.7 61 16 157/73 (101) 97 12/08/17 12:00 61 12/08/17 11:59 96 Nasal Cannula 3.00 12/08/17 10:00 67 12/08/17 08:00 98.4 64 19 173/77 (109) 96 12/08/17 08:00 64 General: No acute distress Eye: PERRL Respiratory: Non-labored respirations Neurologic: Alert Exam Comments alert, ox 2-3, articulate, follows simple requests, eomi, ou 4-3mm, mild rt neglect/mild rt hh, face sym, camacho to gravity with increased tone in ue, no clonus, planterflexor Objective Micro and Labs Laboratory Tests Test 12/09/17 06:07 Blood Urea Nitrogen 13 Creatinine 0.58 Random Glucose 83 Calcium Level 7.6 Magnesium Level 1.9 Sodium Level 138 Potassium Level 3.4 Chloride Level 103 Carbon Dioxide Level 22.9 Anion Gap 12 Estimat Glomerular Filtration Rate 133 Date/Time Source Procedure Growth Status 12/06/17 21:55 Blood Peripheral Aerobic Blood Culture - Preliminary NO GROWTH IN 2 DAYS Resulted 12/06/17 21:55 Blood Peripheral Anaerobic Blood Culture - Preliminary NO GROWTH IN 2 DAYS Resulted 12/06/17 16:00 Urine Clean Catch Urine Culture - Final Enterococcus Faecalis Complete Sha Jane MD December 09, 2017 07:58
[2017-12-09 08:00] VITALS: BP 140/64; PULSE 57; RESP 17; TEMP 98.8; O2SAT 98
--- NOTE | 2017-12-09 08:54 | HHI.PR ---
Subjective Remarks F/u SDH. States not so good because service is not good otherwise denies headache Objective Vitals Vital Signs Date Time Temp Pulse Resp B/P (MAP) Pulse Ox O2 Delivery O2 Flow Rate FiO2 12/09/17 06:42 97.9 60 24 160/75 (103) 93 12/09/17 00:00 98.5 60 22 129/55 (79) 94 12/08/17 20:15 98 Nasal Cannula 2.00 12/08/17 20:04 62 12/08/17 20:00 99.1 60 19 167/78 (107) 96 12/08/17 16:49 63 12/08/17 16:00 98.9 62 18 180/84 (116) 90 12/08/17 12:00 98.7 61 16 157/73 (101) 97 12/08/17 12:00 61 12/08/17 11:59 96 Nasal Cannula 3.00 12/08/17 10:00 67 I/O 12/08/17 12/08/17 12/08/17 12/09/17 12/09/17 12/09/17 07:00 15:00 23:00 07:00 15:00 23:00 Intake Total 760 ml 405 ml 680 ml Output Total 550 ml 250 ml 550 ml Balance 210 ml 405 ml 430 ml -550 ml Intake Oral 360 ml 480 ml IV Total 400 ml 405 ml 200 ml Output Urine Total 550 ml 250 ml 550 ml # Voids 1 # Bowel Movements 2 0 Result Diagram: 12/07/17 0552 12/09/17 0607 Imaging Last Impressions Head CT 12/06/17 0800 Signed Impressions: Service Date/Time: Wednesday, December 06, 2017 05:00 - CONCLUSION: Stable prominent parafalcine subdural hematoma extending into both the left frontal lobe and the left side of the tentorium unchanged from the previous study. Small amounts of extra-axial hemorrhage along the parietal lobe and left temporal lobes are also unchanged. Jensen Gaytan MD Chest X-Ray 12/06/17 0000 Signed Impressions: Service Date/Time: Wednesday, December 06, 2017 16:11 - CONCLUSION: 1. Possible airspace infiltrate in the medial right base. 2. Borderline prominent but well compensated heart Michael Franks MD Brain MRI 12/06/17 0000 Signed Impressions: Service Date/Time: Wednesday, December 06, 2017 15:40 - CONCLUSION: 1. Acute subdural hematoma in the interhemispheric region extending to predominantly the left convexity up to around 1 cm in diameter, and over the tentorium. No recent infarct. Chronic white matter ischemic changes as above. Minimal mass effect with 2-3 mm left to right midline shift. Lopez Bradley MD Objective Remarks Neuro: Awake following commands with generalized weakness Neck: Supple, airway widely patent Chest/pulmonary: Clear, equal in expansion Cardiovascular: S1-S2 regular no gallop or murmur. No JVD. GI/abdomen: Soft, nontender, bowel sounds present. No guarding. Extremities: Warm bilaterally, no edema. Well-perfused. Procedures none A/P Problem List: (1) TBI (traumatic brain injury) ICD Code: S06.9X9A - Unspecified intracranial injury with loss of consciousness of unspecified duration, initial encounter Assessment and Plan 87-year-old male with: Left subdural hematoma status post fall with encephalopathy. Improving mental status I think he is back to his baseline but he has deconditioning will need rehabilitation. Switch to p.o. Keppra. Continue to hold Eliquis Scalp laceration s/p repair DC sutures December 12 History of CVA/TIAs. MRI shows no acute infarction Hyperlipidemia stable Hypertension. Improving will increase Norvasc to 5 mg twice a day and continue rest of home medications goal BP < 120/80 Pneumonia. Stable switch to p.o. Cipro. Repeat chest x-ray in 6 weeks Enterococcus faecalis UTI on Cipro Improving diarrhea, Ct lactinex C diff ordered Prophylaxis: SCDs for DVT prophylaxis. PT recommends rehab Daughter has been encouraged to discuss detention goals with her brother. She is POA for health. Discharge Planning Stable for dc Gera Fuchs MD December 09, 2017 08:54
[2017-12-09] MEDS: RESP: ALBUTEROL 2.5 MG/3 ML NEB (SCH) NEB ×3 (08:58→15:24)
[2017-12-09] MEDS ORDERED: AMOXICILLIN/CLAVULANATE K 875 MG TAB PO SCH (09:00)
[2017-12-09] MEDS ORDERED: POTASSIUM CHLORIDE 20 MEQ CONTROLLED RELEASE TAB PO SCH (09:00)
[2017-12-09] MEDS ORDERED: POTASSIUM CHLORIDE 20 MEQ CONTROLLED RELEASE TAB PO ONE (09:00)
[2017-12-09] MEDS ORDERED: CIPROFLOXACIN 500 MG TAB PO SCH (09:00)
[2017-12-09] MEDS: SODIUM CHLORIDE 0.9% FLUSH 10 ML FLUSH IV FLUSH SCH (09:00)
[2017-12-09 09:05] VITALS: O2SAT 97
[2017-12-09] MEDS: levETIRAcetam 500 MG TAB PO SCH (09:16)
[2017-12-09] MEDS: LACTOBACILLUS ACIDOPHILUS TAB PO SCH ×2 (09:16→12:09)
[2017-12-09] MEDS: MUPIROCIN 2% OINT 1 APPLIC/GM SYR EACH NARE SCH (09:16)
[2017-12-09] MEDS: CHOLECALCIFEROL (VIT D3) 1000 UNIT TAB PO SCH (09:16)
[2017-12-09] MEDS: CITALOPRAM HYDROBROMIDE 20 MG TAB PO SCH (09:17)
[2017-12-09] MEDS: TIMOLOL MALEATE 0.5% OPHT SOLN 5 ML BTL EACH EYE SCH (09:19)
[2017-12-09] MEDS: NYSTATIN 100,000 U/GM PWD 15 GM BTL TOPICAL SCH (09:19)
[2017-12-09] MEDS: BRIMONIDINE TARTRATE 0.2% OPHT SOLN 5 ML BTL EACH EYE SCH (09:20)
[2017-12-09] MEDS: FINASTERIDE 5 MG TAB PO SCH (09:21)
[2017-12-09] MEDS: METOPROLOL SUCCINATE 50 MG EXTENDED RELEASE TAB PO SCH (09:22)
[2017-12-09] MEDS: HYDROCHLOROTHIAZIDE 12.5 MG CAP PO SCH (09:23)
[2017-12-09] MEDS: amLODIPine BESYLATE 5 MG TAB PO SCH (09:23)
[2017-12-09] MEDS: LISINOPRIL 20 MG TAB PO SCH (09:23)
--- NOTE | 2017-12-09 15:47 | HHI.DS ---
Discharge Summary Admission Date December 04, 2017 at 04:00 Discharge Date: December 09, 2017 Admitting Diagnosis (1) TBI (traumatic brain injury) ICD Code: S06.9X9A - Unspecified intracranial injury with loss of consciousness of unspecified duration, initial encounter Diagnosis: Principal Procedures none Brief History - From Admission 87-year-old male who presented to [facility] on 12/03 with a history of fall 1930 minutes prior to presentation which happened when he was going to lay in his bed when he missed and fell down hitting his head. Patient reportedly on Eliquis. He underwent a head CT at [facility] which revealed left hyperdense subdural hematoma measuring 1 cm in maximal thickness with no mass-effect contiguous left frontal convexity subdural hematoma containing hyperdense hemorrhage maximal thickness 0.8 cm. 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 Patient did sustain a scalp laceration which was sutured at [facility] prior to transferring to [place]. Patient was accepted for transfer to [facility] by Dr. Roche for neurosurgery evaluation. I evaluated the patient this morning following arrival to [facility]. Patient is awake and alert and gives me details of his history. Denies any headache, visual disturbance, dizziness, nausea or vomiting. He does have minimal weakness on the left side which is from his previous stroke. CBC/BMP: 12/07/17 0552 12/09/17 0607 Significant Findings Laboratory Tests Test 12/06/17 16:00 12/06/17 17:10 12/06/17 21:55 12/07/17 05:52 Urine Ketones 10 mg/dL (NEG) Urine Occult Blood TRACE (NEG) Urine Leukocyte Esterase LARGE (NEG) Urine WBC 67 /hpf (0-5) Urine Bacteria OCC /hpf (NONE) Arterial Blood pH 7.49 (7.380-7.420) Arterial Blood Partial Pressure CO2 32 mmHg (38-42) Blood Gas Hemoglobin 10.1 G/DL (12.0-16.0) Erythrocyte Sedimentation Rate 37 mm/hr (0-20) C-Reactive Protein 9.70 MG/DL (0.00-0.30) Red Blood Count 3.68 MIL/MM3 (4.50-5.90) Hemoglobin 11.8 GM/DL (13.0-17.0) Hematocrit 34.0 % (39.0-51.0) Neutrophils (%) (Auto) 82.2 % (16.0-70.0) Neutrophils # (Auto) 8.9 TH/MM3 (1.8-7.7) Creatinine 0.51 MG/DL (0.60-1.30) Random Glucose 109 MG/DL (74-106) Calcium Level 8.2 MG/DL (8.5-10.1) Potassium Level 3.0 MEQ/L (3.5-5.1) Phosphorus Level 1.8 MG/DL (2.5-4.9) Test 12/08/17 05:28 12/09/17 06:07 Creatinine 0.58 MG/DL (0.60-1.30) 0.58 MG/DL (0.60-1.30) Calcium Level 8.0 MG/DL (8.5-10.1) 7.6 MG/DL (8.5-10.1) Potassium Level 2.8 MEQ/L (3.5-5.1) 3.4 MEQ/L (3.5-5.1) Imaging Last Impressions Head CT 12/06/17 0800 Signed Impressions: Service Date/Time: Wednesday, December 06, 2017 05:00 - CONCLUSION: Stable prominent parafalcine subdural hematoma extending into both the left frontal lobe and the left side of the tentorium unchanged from the previous study. Small amounts of extra-axial hemorrhage along the parietal lobe and left temporal lobes are also unchanged. Jensen Gaytan MD Chest X-Ray 12/06/17 0000 Signed Impressions: Service Date/Time: Wednesday, December 06, 2017 16:11 - CONCLUSION: 1. Possible airspace infiltrate in the medial right base. 2. Borderline prominent but well compensated heart Michael Franks MD Brain MRI 12/06/17 0000 Signed Impressions: Service Date/Time: Wednesday, December 06, 2017 15:40 - CONCLUSION: 1. Acute subdural hematoma in the interhemispheric region extending to predominantly the left convexity up to around 1 cm in diameter, and over the tentorium. No recent infarct. Chronic white matter ischemic changes as above. Minimal mass effect with 2-3 mm left to right midline shift. Lopez Bradley MD PE at Discharge Neuro: Awake following commands with generalized weakness Neck: Supple, airway widely patent Chest/pulmonary: Clear, equal in expansion Cardiovascular: S1-S2 regular no gallop or murmur. No JVD. GI/abdomen: Soft, nontender, bowel sounds present. No guarding. Extremities: Warm bilaterally, no edema. Well-perfused. Hospital Course 87-year-old male with: Left subdural hematoma status post fall with encephalopathy. Improving mental status I think he is back to his baseline but he has deconditioning will need rehabilitation. Switch to p.o. Keppra. Continue to hold Eliquis Scalp laceration s/p repair DC sutures December 12 History of CVA/TIAs. MRI shows no acute infarction Hyperlipidemia stable Hypertension. Improving will increase Norvasc to 5 mg twice a day and continue rest of home medications goal BP < 120/80 Pneumonia. Stable switch to p.o. Cipro. Repeat chest x-ray in 6 weeks Enterococcus faecalis UTI on Cipro Improving diarrhea, Ct lactinex C diff ordered Prophylaxis: SCDs for DVT prophylaxis. PT recommends rehab Daughter has been encouraged to discuss alf goals with her brother. She is POA for health. Pt Condition on Discharge: Stable Discharge Disposition: Discharge to SNF Discharge Time: > 30 minutes Discharge Instructions DIET: Follow Instructions for: Heart Healthy Diet Activities you can perform: Regular-No Restrictions Activities to Avoid: Driving Follow up Referrals: Neurology - 1 Week Neurosurgery - 1 Week PCP Follow-up - 1 Week New Medications: Amlodipine (Norvasc) 5 Mg Tab 5 MG PO BID for Blood Pressure Management, #60 TAB Lactobacillus Acidophilus (Acidophilus/l-Sporogenes) 35 Million Cell-25 Million Cell Tab 1 TAB PO TID for Bowel Management, #20 TAB Levetiracetam (Keppra) 500 Mg Tab 500 MG PO Q12HR for Control Seizures, #60 TAB Mupirocin Nasal Oint (Bactroban Nasal Oint) 2% Oint 1 APPLIC EACH NARE BID for Infection, #1 TUBE dc 12/13/17 Single-use tubes. Potassium Chloride Microencaps (Potassium Chloride Microencaps) 20 Meq Tab 20 MEQ PO DAILY for Electrolyte Replacement, #30 TAB Continued Medications: Atorvastatin (Atorvastatin) 10 Mg Tab 10 MG PO HS for Cholesterol Management, #30 TAB 0 Refills Brimonidine-Timolol Opth Drops (Combigan Opth Drops) 0.2-0.5% Soln 1 DROP EACH EYE Q12HR for Glaucoma, BOTTLE 0 Refills Cholecalciferol (Vitamin D3) 1,000 Unit Cap 1000 UNITS DAILY for Nutritional Supplement, #1 BOTTLE 0 Refills Citalopram (Celexa) 10 Mg Tab 10 MG PO DAILY for Control Depression, #30 TAB 0 Refills Finasteride (Finasteride) 5 Mg Tab 5 MG DAILY for Manage Prostate Problems, #30 TAB 0 Refills Do not crush. Lisinopril (Lisinopril) 40 Mg Tab 40 MG PO DAILY for Blood Pressure Management, #30 TAB 0 Refills Metoprolol Succinate/HCTZ 100-12.5 ER (Metoprolol Succinate/HCTZ 100-12.5 ER) 100 Mg-12.5 Mg Tab 1 TAB PO DAILY, #30 TAB 0 Refills Nystatin Topical (Nystop Topical) 100,000 Unit/Gm Powd 1 APPLIC TOPICAL Q12HR for Infection, #15 GM 0 Refills Tamsulosin (Flomax) 0.4 Mg Cap 0.4 MG PO HS for Manage Prostate Problems, #30 CAP 0 Refills Gera Fuchs MD December 09, 2017 15:47
== END 2017-12-09 16:13 | DRG 82 ==
LOC: N03A 04:00 → N05A 12-08 13:34
PROVIDERS: ADMIT Internal Medicine; ATTEND Internal Medicine
DX: S06.5X9A Traumatic subdural hemorrhage with loss of consciousness of unspecified duration, initial encounter (principal); W01.0XXA Fall on same level from slipping, tripping and stumbling without subsequent striking against object, initial encounter; G93.40 Encephalopathy, unspecified; J18.9 Pneumonia, unspecified organism; N39.0 Urinary tract infection, site not specified; B95.2 Enterococcus as the cause of diseases classified elsewhere; I69.354 Hemiplegia and hemiparesis following cerebral infarction affecting left non-dominant side; R47.01 Aphasia; Z79.02 Long term (current) use of antithrombotics/antiplatelets; I10 Essential (primary) hypertension; E78.5 Hyperlipidemia, unspecified; M81.0 Age-related osteoporosis without current pathological fracture; H40.9 Unspecified glaucoma; R19.7 Diarrhea, unspecified; Z23 Encounter for immunization
CPT/HCPCS: 36600; 70450; 70551; 71045; 80048; 80177; 81001; 82140; 82805; 83036; 83735; 84100; 85025; 85652; 86140; 87040; 87077; 87086; 87186; 87449; 87641; 90686; 93005; 94640; 94664; 95819; J0360; J1953; J2543; J3480; J7030; J7050; J7613; Q2038